=== PATIENT | female | born 1995 | race Caucasian/White ===

== ENCOUNTER 2017-09-21 00:09 | Emergency (ER) | payer SELFPAY ==
--- NOTE | 2017-09-21 00:37 | EDPHYS ---
Physician Documentation [facility] Name: Cristopher Garza Age: 22 yrs Sex: Female : 1995 Arrival Date: 09/21/2017 Time: 00:10 Bed 11 Private MD: ED Physician Malvin Bowen HPI: 09/21 02:36 This 22 yrs old Female presents to ER via Ambulatory with complaints of Back tw4 Pain - (Sunburn). 02:36 The patient presents with pain that is acute. The symptoms are located in the left tw4 scapular area and right scapular area. Onset: The symptoms/episode began/occurred today. The pain does not radiate. The problem was sustained sunburn. Modifying factors: The patient symptoms are alleviated by nothing, the patient symptoms are aggravated by. 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 - Social history:: Smoking status: Patient uses tobacco products, denies chronic smoking, but will smoke occasionally. - Ebola Screening: : Patient negative for fever greater than or equal to 101.5 degrees Fahrenheit, and additional compatible Ebola Virus Disease symptoms Patient denies exposure to infectious person Patient denies travel to an Ebola-affected area in the 21 days before illness onset. ROS: 02:36 Constitutional: Negative for fever, chills, and weight loss, Cardiovascular: Negative tw4 for chest pain, palpitations, and edema, Respiratory: Negative for shortness of breath, cough, wheezing, and pleuritic chest pain, Abdomen/GI: Negative for abdominal pain, nausea, vomiting, diarrhea, and constipation. 02:36 Skin: Positive for erythema. Exam: 02:36 Constitutional: This is a well developed, well nourished patient who is awake, alert, tw4 and in no acute distress. Head/Face: Normocephalic, atraumatic. Chest/axilla: Normal chest wall appearance and motion. Nontender with no deformity. No lesions are appreciated. Cardiovascular: Regular rate and rhythm with a normal S1 and S2. No gallops, murmurs, or rubs. Normal PMI, no JVD. No pulse deficits. Respiratory: Lungs have equal breath sounds bilaterally, clear to auscultation and percussion. No rales, rhonchi or wheezes noted. No increased work of breathing, no retractions or nasal flaring. Abdomen/GI: Soft, non-tender, with normal bowel sounds. No distension or tympany. No guarding or rebound. No evidence of tenderness throughout. 02:36 Skin: Appearance: Color: erythematous, [place], flushing. Vital Signs: 00:22 BP 125 / 87; Pulse 66; Resp 24; Temp 98.0(O); Pulse Ox 98% on R/A; Weight 92.99 kg (R); fc Height 5 ft. 8 in. (172.72 cm) (R); Pain 10/10; 00:22 Body Mass Index 31.17 (92.99 kg, 172.72 cm) MDM: 00:20 Patient medically screened. [facility] 02:36 Data reviewed: vital signs, nurses notes. Counseling: I had a detailed discussion with [facility] the patient and/or guardian regarding: the historical points, exam findings, and any diagnostic results supporting the discharge/admit diagnosis. Medication response: Toradol markedly relieved the patient's pain. Response to treatment: the patient's symptoms have markedly improved after treatment, and as a result, I will discharge patient. 09/21 00:44 Order name: Urine Dipstick--Ancillary (enter results) [facility] 06 00:44 Order name: Urine --Ancillary (enter results) [facility] 09/21 00:34 Order name: Urine Test (obtain specimen); Complete Time: 00:44 bb Administered Medications: 00:49 Drug: TORadol 60 mg Route: IM; Site: left gluteus; bb 01:04 Follow up: Response: No adverse reaction bb Disposition: 09/21/17 00:37 Discharged to Home. Impression: Sunburn of first degree. - Condition is Stable. - Discharge Instructions: Sunburn. - Prescriptions for Ibuprofen 800 mg Oral Tablet - take 1 tablet by ORAL route every 8 hours As needed take with food; 30 tablet. - Work release form, Medication Reconciliation Form, Thank You Letter, Antibiotic Education, Prescription Opioid Use form. - Follow up: Private Physician; When: As needed; Reason: Recheck today's complaints, Continuance of care, Re-evaluation by your physician. - Problem is new. - Symptoms have improved. Signatures: Dispatcher [employer] Eun Morrison, RN RN Yvonne Meyers RN RN bb Malvin Bowen MD MD tw4 Corrections: (The following items were deleted from the chart) 01:06 00:37 09/21/2017 00:37 Discharged to Home. Impression: Sunburn of first degree. bb Condition is Stable. Forms are Medication Reconciliation Form, Thank You Letter, Antibiotic Education, Prescription Opioid Use. Follow up: Private Physician; When: As needed; Reason: Recheck today's complaints, Continuance of care, Re-evaluation by your physician. Problem is new. Symptoms have improved. tw4
--- NOTE | 2017-09-21 00:37 | ER ---
Nurse's Notes [facility] Name: Cristopher Garza Age: 22 yrs Sex: Female : 1995 Arrival Date: 09/21/2017 Time: 00:10 Bed 11 Private MD: Diagnosis: Sunburn of first degree Presentation: 09/21 00:21 Presenting complaint: Patient states: that she got sunburned on Wednesday. Is having fc severe pain to upper back. Transition of care: patient was not received from another setting of care. Onset of symptoms was September 18, 2017. Risk Assessment: Do you want to hurt yourself or someone else? Patient reports no desire to harm self or others. Initial Sepsis Screen: Does the patient meet any 2 criteria? HR > 90 bpm. Yes Does the patient have a suspected source of infection? No. Patient's initial sepsis screen is negative. Care prior to arrival: Medication(s) given: Aloe vera and baking soda baths. 00:21 Method Of Arrival: Ambulatory 00:21 Acuity: OZZIE 5 Triage Assessment: 00:23 General: Appears uncomfortable, obese, Behavior is calm, cooperative, appropriate for age. Pain: Complains of pain in back Pain currently is 10 out of 10 on a pain scale. Quality of pain is described as burning, Pain began 2-3 days ago. Is continuous. EENT: No deficits noted. Neuro: Level of Consciousness is awake, alert, obeys commands, Oriented to person, place, time, situation. Cardiovascular: No deficits noted. Respiratory: No deficits noted. GI: No deficits noted. : No deficits noted. Derm: Skin is intact, Skin is dry, Skin is red, to back Skin temperature is hot. Musculoskeletal: Circulation, motion, and sensation intact. Capillary refill < 3 seconds, Range of motion: intact in all extremities, Reports pain in back from sunburn. [employer] OPERATIONS: 00:22 LMP 09/12/2017 Historical: - Allergies: 00:22 Codeine; fc 00:22 Sulfa; fc - Home Meds: 00:22 None [Active]; fc - PMHx: 00:22 Anxiety; fc - PSHx: 00:22 [place] teeth; fc - Immunization history:: Last tetanus immunization: up to date. - Social history:: Smoking status: Patient uses tobacco products, denies chronic smoking, but will smoke occasionally. - Ebola Screening: : Patient negative for fever greater than or equal to 101.5 degrees Fahrenheit, and additional compatible Ebola Virus Disease symptoms Patient denies exposure to infectious person Patient denies travel to an Ebola-affected area in the 21 days before illness onset. Screenin:24 Abuse screen: Denies threats or abuse. Nutritional screening: No deficits noted. fc Tuberculosis screening: No symptoms or risk factors identified. Fall Risk None identified. Assessment: 00:24 Reassessment: No changes from previously documented assessment. Patient and/or family fc updated on plan of care and expected duration. Pain level reassessed. Patient is alert, oriented x 3, equal unlabored respirations, skin warm/dry/pink. see triage assessment. 01:04 Reassessment: Patient is alert, oriented x 3, equal unlabored respirations, skin bb warm/dry/pink. pt verbalized understanding of and agrees to plan of care discharge instructions given pt ambulated with steady gait to exit accompanied by friend. Vital Signs: 00:22 BP 125 / 87; Pulse 66; Resp 24; Temp 98.0(O); Pulse Ox 98% on R/A; Weight 92.99 kg (R); fc Height 5 ft. 8 in. (172.72 cm) (R); Pain 10/10; 00:22 Body Mass Index 31.17 (92.99 kg, 172.72 cm) fc ED Course: 00:10 Patient arrived in ED. ds1 00:20 Malvin Bowen MD is Attending Physician. tw4 00:22 Triage completed. fc 00:22 Arm band placed on Patient placed in an exam room. fc 00:24 Patient has correct armband on for positive identification. Call light in reach. fc 00:24 No provider procedures requiring assistance completed. Patient did not have IV access fc during this emergency room visit. 00:34 Yvonne Meyers, MEGHNA is Primary Nurse. bb Administered Medications: 00:49 Drug: TORadol 60 mg Route: IM; Site: left gluteus; bb 01:04 Follow up: Response: No adverse reaction bb Outcome: 00:37 Discharge ordered by . tw4 01:05 Discharged to home ambulatory, with friend. bb 01:05 Condition: stable 01:05 Discharge instructions given to patient, Instructed on discharge instructions, follow up and referral plans. medication usage, Demonstrated understanding of instructions, follow-up care, medications, Prescriptions given X 1. 01:06 Patient left the ED. bb Signatures: Eun Shaw RN RN Delma Balderas ds1 Yvonne Meyers RN RN Malvin King MD MD tw4
[2017-09-21] MEDS ORDERED: KETOROLAC 30 MG/ML INJ ONE (00:45)
[2017-09-21 01:37] LABS: Urine Blood 1+ (NEG); Urine Glucose NEGATIVE (NEG); Urine Protein NEGATIVE (NEG)
[2017-09-21 01:38] VITALS: BP 125/87; TEMP 98; O2SAT 98
== END 2017-09-21 01:06 | disposition home or self-care (01) ==
LOC: ER 00:09
DX: L55.0 Sunburn of first degree (principal); F17.200 Nicotine dependence, unspecified, uncomplicated; Z88.6 Allergy status to analgesic agent; Z88.2 Allergy status to sulfonamides
CPT/HCPCS: 81003; 81025; 96372; 99283

== ENCOUNTER 2017-12-27 15:43 | Emergency (ER) | payer SELFPAY ==
[2017-12-27 16:29] LABS: Absolute Lymphocytes (CBC) 2.4 K/uL (0.7-4.9); Absolute Monocytes 0.8 K/uL (0.1-1.3); Absolute Neutrophil 6.2 K/uL (1.8-8.0); Basophils % 0.5 % (0-1.3); Eosinophils % 2.1 % (0-4.4); Hematocrit 40.3 % (36.0-45.0); Lymphocytes % 24.6 % (15.3-44.8); MCH 31.5 pg (27.0-35.0); MCV 89.5 fL (80-100); MPV 8.2 fL (7.6-11.3)
[2017-12-27] MEDS ORDERED: ONDANSETRON 4 MG/2 ML VIAL ONE (16:29)
[2017-12-27] MEDS ORDERED: MORPHINE 4 MG/ML SYR ONE (16:29)
[2017-12-27 16:49] LABS: BUN Blood Urea Nitrogen 9 mg/dL (7-18); Bicarbonate 28 mmol/L (21-32); Glucose Level 93 mg/dL (74-106); HCG, Quantitative 13 mIU/mL (1-3); Potassium 3.7 mmol/L (3.5-5.1); Sodium Level 140 mmol/L (136-145)
[2017-12-27 17:16] LABS: Urine Blood 2+ (NEG); Urine Glucose NEGATIVE (NEG); Urine Protein NEGATIVE (NEG); Urine pH 7.5 (5.0-7.0)
--- NOTE | 2017-12-27 17:21 | RAD REPORT ---
EXAM DESCRIPTION: US - Transvaginal OB - 12/27/2017 5:15 pm CLINICAL HISTORY: Vaginal bleeding COMPARISON: None. FINDINGS: Endometrial stripe is 6 mm. No intrauterine gestational sac or sac remnant. No hematoma, m ass or other focal endometrial abnormality. There are no myometrial masses. Uterus is 6.9 x 3.9 x 4.6 cm. Both ovaries are identifiable and show no dominant solid or cystic mass. Doppler evaluation shows nor mal blood flow within the ovarian stroma. No adnexal mass. Small quantity of free fluid in the cul-de -sac is within physiologic limits. IMPRESSION: Endovaginal pelvic ultrasound shows no significant or suspicious finding.
[2017-12-27] MEDS ORDERED: ACETAMINOPHEN 325 MG TABLET ONE (18:19)
--- NOTE | 2017-12-27 18:22 | ER ---
Nurse's Notes [facility] Name: Cristopher Garza Age: 22 yrs Sex: Female : 1995 Arrival Date: 12/27/2017 Time: 15:47 Bed 30 Private MD: Diagnosis: Suspected Presentation: 12/27 15:48 Presenting complaint: Patient states: vaginal bleeding that began today at 1200. Pt aa5 reports positive test 2-3 days ago. Pt also reports abd cramping. Transition of care: patient was not received from another setting of care. Onset of symptoms was December 2017. Risk Assessment: Do you want to hurt yourself or someone else? Patient reports no desire to harm self or others. Initial Sepsis Screen: Does the patient meet any 2 criteria? No. Patient's initial sepsis screen is negative. Does the patient have a suspected source of infection? No. Patient's initial sepsis screen is negative. Care prior to arrival: None. 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 - Ebola Screening: : No symptoms or risks identified at this time. - Social history:: Smoking status: Patient/guardian denies using tobacco. - Family history:: not pertinent. - Hospitalizations: : No recent hospitalization is reported. Screenin:54 Abuse screen: Denies threats or abuse. Denies injuries from another. Nutritional kr2 screening: No deficits noted. Tuberculosis screening: No symptoms or risk factors identified. Fall Risk IV access (20 points). Assessment: 16:00 Obstetrical Assessment: General assessment: awake and alert, anxious, skin warm and kr2 dry, respirations even and unlabored. General: Appears in no apparent distress. uncomfortable, well groomed, well developed, well nourished, Behavior is cooperative, appropriate for age, anxious. Pain: Complains of pain in pelvis Pain does not radiate. Pain currently is 8 out of 10 on a pain scale. Quality of pain is described as crampy, Pain began a few days ago Is Alleviated by nothing. Neuro: Level of Consciousness is awake, alert, obeys commands, Oriented to person, place, time, situation, Appropriate for age. Cardiovascular: Capillary refill < 3 seconds in bilateral fingers Patient's skin is warm and dry. Respiratory: Airway is patent Respiratory effort is even, unlabored, Respiratory pattern is regular, symmetrical. GI: Abdomen is flat, non-distended, Reports nausea. : Urine is clear, Reports cramping, pelvis vaginal bleeding that is bright red, since noon today "I only see blood when I wipe, I haven't seen any clots". Derm: Skin is intact, is healthy with good turgor, Skin is pink, warm \\T\\ dry. Musculoskeletal: Circulation, motion, and sensation intact. 17:16 Reassessment: Patient appears in no apparent distress at this time. Patient and/or kr2 family updated on plan of care and expected duration. Pain level reassessed. Patient is alert, oriented x 3, equal unlabored respirations, skin warm/dry/pink. Patient returned from ultrasound at this time. 18:33 Reassessment: Patient appears in no apparent distress at this time. Patient and/or kr2 family updated on plan of care and expected duration. Pain level reassessed. Patient is alert, oriented x 3, equal unlabored respirations, skin warm/dry/pink. Patient states symptoms have improved. Vital Signs: 15:50 BP 117 / 72; Pulse 78; Resp 16 S; Temp 97.3(TE); Pulse Ox 100% on R/A; Weight 92.99 kg aa5 (R); Height 5 ft. 5 in. (165.10 cm) (R); Pain 7/10; 16:40 BP 115 / 71; Pulse 61; Resp 16; Pulse Ox 97% on R/A; kr2 17:22 BP 114 / 59; Pulse 69; Resp 16; Pulse Ox 99% on R/A; kr2 18:33 BP 120 / 76; Pulse 70; Resp 17; Pulse Ox 99% on R/A; kr2 15:50 Body Mass Index 34.11 (92.99 kg, 165.10 cm) aa5 Vitals: 18:35 Heart Tones Done by ultrasound department. kr2 ED Course: 15:47 Patient arrived in ED. mr 15:48 Arm band placed on. aa5 15:49 Triage completed. aa5 15:54 Juwan Rhodes MD is Attending Physician. rn 16:00 Patient has correct armband on for positive identification. Bed in low position. Call kr2 light in reach. Side rails up X 1. Pulse ox on. NIBP on. Door closed. Warm blanket given. Head of bed elevated. 16:11 Rebekah Franco, RN is Primary Nurse. kr2 16:15 Inserted saline lock: 20 gauge in right antecubital area, using aseptic technique. kr2 Blood collected. 16:20 Radiology exam delayed due to test not completed at this time. aa4 16:40 Urine collected: clean catch specimen, clear. kr2 17:00 Patient taken to ultrasound. via wheelchair. cy 17:15 US Transvaginal Ob In Process Unspecified. EDMS 18:34 No provider procedures requiring assistance completed. IV discontinued, intact, kr2 bleeding controlled, No redness/swelling at site. Pressure dressing applied. Administered Medications: 16:47 Drug: Zofran 4 mg Route: IVP; Site: right antecubital; kr2 17:22 Follow up: Response: No adverse reaction; Nausea is decreased kr2 16:48 Drug: morphine 4 mg Route: IVP; Site: right antecubital; kr2 17:23 Follow up: Response: No adverse reaction; Pain is decreased kr2 18:18 Drug: Tylenol 650 mg Route: PO; aj 18:39 Follow up: Response: No adverse reaction; Pain is decreased kr2 Point of Care Testing: Urine : 16:40 hCG Reading: Positive; Control Reading: Positive; kr2 Outcome: 18:22 Discharge ordered by . rn 18:34 Discharged to home ambulatory, with family. kr2 18:34 Condition: stable 18:34 Discharge instructions given to patient, Instructed on discharge instructions, follow up and referral plans. Demonstrated understanding of instructions, follow-up care. 18:40 Patient left the ED. kr2 Signatures: Dispatcher [employer] EDMS Alda Curiel RN RN aj Rivera, Maria mr Retana Alda aa4 Juwan Rhodes MD MD rn Calderon, Audri, RN RN aa5 Rebekah Franco RN RN kr2 Philip Boswell Corrections: (The following items were deleted from the chart) 15:57 15:50 BP 117 / 72; Pulse 78bpm; Resp 16bpm; Spontaneous; Pulse Ox 100% RA; Temp 97.3F aa5 Temporal; 92.99 kg Reported; Height 5 ft. 0 in. Reported; BMI: 40.0; Pain 7/10; aa5
--- NOTE | 2017-12-27 18:23 | EDPHYS ---
Physician Documentation [facility] Name: Cristopher Garza Age: 22 yrs Sex: Female : 1995 Arrival Date: 12/27/2017 Time: 15:47 Bed 30 Private MD: ED Physician Juwan Rhodes HPI: 12/27 17:42 This 22 yrs old Female presents to ER via Ambulatory with complaints of rn Vaginal Bleeding, + Preg <12wks, Abdominal Pain. 17:42 The patient presents to the emergency department with abdominal pain, vaginal bleeding. rn The estimated gestational age is 4 weeks. The patient has not experienced similar symptoms in the past. Reports first , had positive test 2-3 days ago, has been having mild lower abd cramping for 1-2 weeks, but earlier today had development of sharp stabbing pain to lower abdomen, all across lower abdomen, non-radiating, assoc with vaginal bleeding, a little more than her regular period, no fever/trauma/sex. . 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 - Ebola Screening: : No symptoms or risks identified at this time. - Social history:: Smoking status: Patient/guardian denies using tobacco. - Family history:: not pertinent. - Hospitalizations: : No recent hospitalization is reported. ROS: 17:42 Constitutional: Negative for fever, chills, and weight loss, Eyes: Negative for injury, rn pain, redness, and discharge, Neck: Negative for injury, pain, and swelling, Cardiovascular: Negative for chest pain, palpitations, and edema, Respiratory: Negative for shortness of breath, cough, wheezing, and pleuritic chest pain, Abdomen/GI: + lower abd pain Back: Negative for injury and pain, : + vaginal bleeding, no urinary symptoms, no dysuria MS/Extremity: Negative for injury and deformity, Skin: Negative for injury, rash, and discoloration, Neuro: Negative for headache, weakness, numbness, tingling, and seizure. Exam: 17:42 Constitutional: This is a well developed, well nourished patient who is awake, alert, rn appears uncomfortable Head/Face: Normocephalic, atraumatic. Eyes: Pupils equal round and reactive to light, extra-ocular motions intact. Lids and lashes normal. Conjunctiva and sclera are non-icteric and not injected. Cornea within normal limits. Periorbital areas with no swelling, redness, or edema. Cardiovascular: Regular rate and rhythm with a normal S1 and S2. No gallops, murmurs, or rubs. Normal PMI, no JVD. No pulse deficits. Respiratory: Lungs have equal breath sounds bilaterally, clear to auscultation and percussion. No rales, rhonchi or wheezes noted. No increased work of breathing, no retractions or nasal flaring. Abdomen/GI: soft, mild tenderness RLQ/suprapubic/LLQ, no rebound or peritoneal signs Skin: Warm, dry with normal turgor. Normal color with no rashes, no lesions, and no evidence of cellulitis. MS/ Extremity: Pulses equal, no cyanosis. Neurovascular intact. Full, normal range of motion. Equal circumference. Neuro: Awake and alert, GCS 15, oriented to person, place, time, and situation. Cranial nerves II-XII grossly intact. Motor strength 5/5 in all extremities. Sensory grossly intact. Vital Signs: 15:50 BP 117 / 72; Pulse 78; Resp 16 S; Temp 97.3(TE); Pulse Ox 100% on R/A; Weight 92.99 kg aa5 (R); Height 5 ft. 5 in. (165.10 cm) (R); Pain 7/10; 16:40 BP 115 / 71; Pulse 61; Resp 16; Pulse Ox 97% on R/A; kr2 17:22 BP 114 / 59; Pulse 69; Resp 16; Pulse Ox 99% on R/A; kr2 18:33 BP 120 / 76; Pulse 70; Resp 17; Pulse Ox 99% on R/A; kr2 15:50 Body Mass Index 34.11 (92.99 kg, 165.10 cm) aa5 MDM: 15:54 Patient medically screened. rn 18:18 Differential diagnosis: ectopic . Data reviewed: vital signs, nurses notes, government affairs director test result(s), radiologic studies, ultrasound, and as a result, I will discharge patient. Counseling: I had a detailed discussion with the patient and/or guardian regarding: the historical points, exam findings, and any diagnostic results supporting the discharge/admit diagnosis, lab results, radiology results, the need for outpatient follow up, to return to the emergency department if symptoms worsen or persist or if there are any questions or concerns that arise at home. Response to treatment: the patient's symptoms have mildly improved after treatment, and as a result, I will discharge patient. Special discussion: I discussed with the patient/guardian in detail that at this point there is no indication for admission to the hospital. It is understood, however, that if the symptoms persist or worsen the patient needs to return immediately for re-evaluation. Based on the history and exam findings, there is no indication for further emergent testing or inpatient evaluation. I discussed with the patient/guardian the need to see the OB Gyne specialist for further evaluation of the symptoms. ED course: Pt improved, u/s does not show any evidence of ectopic, nothing in uterus, normal h/h, beta hcg 13, most likely in middle of or completing miscarriage.. 18:24 ED course: O+ per lab. . rn 12/27 16:00 Order name: Quantitative Hcg; Complete Time: 17:06 rn 12/27 16:00 Order name: Abo/rh Typing; Complete Time: 18:25 rn 12/27 16:00 Order name: Basic Metabolic Panel; Complete Time: 17:06 rn 12/27 16:00 Order name: CBC with Diff; Complete Time: 16:39 rn 12/27 16:53 Order name: Urine Dipstick--Ancillary (enter results); Complete Time: 17:33 bd 12/27 16:53 Order name: Urine --Ancillary (enter results); Complete Time: 17:33 bd 12/27 16:00 Order name: Urine Test (obtain specimen); Complete Time: 16:48 rn 12/27 16:00 Order name: IV Saline Lock; Complete Time: 16:48 rn 12/27 16:00 Order name: Labs collected and sent; Complete Time: 16:49 rn 12/27 16:00 Order name: NPO; Complete Time: 16:49 rn 12/27 16:01 Order name: US Transvaginal Ob; Complete Time: 18:06 rn 12/27 16:00 Order name: Urine Dipstick-Ancillary (obtain specimen); Complete Time: 16:49 rn Administered Medications: 16:47 Drug: Zofran 4 mg Route: IVP; Site: right antecubital; kr2 17:22 Follow up: Response: No adverse reaction; Nausea is decreased kr2 16:48 Drug: morphine 4 mg Route: IVP; Site: right antecubital; kr2 17:23 Follow up: Response: No adverse reaction; Pain is decreased kr2 18:18 Drug: Tylenol 650 mg Route: PO; aj 18:39 Follow up: Response: No adverse reaction; Pain is decreased kr2 Point of Care Testing: Urine : 16:40 hCG Reading: Positive; Control Reading: Positive; kr2 Disposition: 12/27/17 18:22 Discharged to Home. Impression: Suspected . - Condition is Stable. - Discharge Instructions: Abdominal Pain During , Miscarriage, First Trimester of . - Medication Reconciliation Form, Thank You Letter, Antibiotic Education, Prescription Opioid Use, Work release form form. - Follow up: Emergency Department; When: 48 Hours; Reason: Recheck today's complaints, Repeat Beta-HCG (48 Hours), Re-evaluation by your physician. - Problem is new. - Symptoms have improved. Signatures: Dispatcher [employer] EDMS Alda Curiel RN Juwan Martinez MD MD rn Calderon, Audri RN MEGHNA aa5 Rebekah Franco RN RN kr2 Corrections: (The following items were deleted from the chart) 18:26 17:42 Constitutional: Negative for fever, chills, and weight loss, Eyes: Negative for rn injury, pain, redness, and discharge, Neck: Negative for injury, pain, and swelling, Cardiovascular: Negative for chest pain, palpitations, and edema, Respiratory: Negative for shortness of breath, cough, wheezing, and pleuritic chest pain, Abdomen/GI: + lower abd pain Back: Negative for injury and pain, : + vaginal bleeding MS/Extremity: Negative for injury and deformity, Skin: Negative for injury, rash, and discoloration, Neuro: Negative for headache, weakness, numbness, tingling, and seizure, rn 18:40 18:22 12/27/2017 18:22 Discharged to Home. Impression: Suspected . Condition is kr2 Stable. Forms are Medication Reconciliation Form, Thank You Letter, Antibiotic Education, Prescription Opioid Use. Follow up: Emergency Department; When: 48 Hours; Reason: Recheck today's complaints, Repeat Beta-HCG (48 Hours), Re-evaluation by your physician. Problem is new. Symptoms have improved. rn
[2017-12-27 18:45] VITALS: TEMP 97.3
[2017-12-27 18:49] VITALS: O2SAT 99
[2017-12-27 18:50] VITALS: BP 120/76
== END 2017-12-27 18:40 | disposition home or self-care (01) ==
LOC: ER 15:43
DX: O46.91 Antepartum hemorrhage, unspecified, first trimester (principal); Z3A.01 Less than 8 weeks gestation of pregnancy; Z88.2 Allergy status to sulfonamides; Z88.5 Allergy status to narcotic agent
CPT/HCPCS: 36415; 76817; 80048; 81003; 81025; 84702; 85025; 86900; 86901; 96374; 96375; 99285; J2405

== ENCOUNTER 2017-12-29 16:00 | Emergency (ER) | payer SELFPAY ==
--- NOTE | 2017-12-29 17:32 | EDPHYS ---
Physician Documentation [facility] Name: Cristopher Garza Age: 22 yrs Sex: Female : 1995 Arrival Date: 12/29/2017 Time: 16:06 Bed 19 Private MD: ED Physician Megan Abdul HPI: 12/29 17:27 This 22 yrs old Female presents to ER via Ambulatory with complaints of kb Repeat HCG.. 17:27 The patient presents to the emergency department with abdominal pain, of the suprapubic kb area, described as crampy, vaginal bleeding, that is light. course: care: none, Leakage of Fluid: none appreciated, Ultrasound: the patient had an ultrasound, on December 27, 2017, which showed No abnormality on US. No signs of on US, Risk/complications: no obvious risks or complications are appreciated. Previous pregnancies: the patient has never been . Associated signs and symptoms: Pertinent positives: abdominal pain, vaginal bleeding, Pertinent negatives: chest pain, diarrhea, dysuria, fever, frequency, nausea, ruptured membranes, seizure, shortness of breath, vaginal discharge, vomiting. The patient has not experienced similar symptoms in the past. The patient has been recently seen at the [facility] Emergency Department, this week, for similar complaints. 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 ROS: 17:27 Constitutional: Negative for fever, chills, and weight loss, Cardiovascular: Negative kb for chest pain, palpitations, and edema, Respiratory: Negative for shortness of breath, cough, wheezing, and pleuritic chest pain, Back: Negative for injury and pain, MS/Extremity: Negative for injury and deformity, Skin: Negative for injury, rash, and discoloration, Neuro: Negative for headache, weakness, numbness, tingling, and seizure. 17:27 Abdomen/GI: Positive for abdominal pain, Negative for nausea, vomiting, and diarrhea, constipation, abdominal cramps, abdominal distension, anorexia. 17:27 : Positive for vaginal bleeding. Exam: 17:26 Constitutional: This is a well developed, well nourished patient who is awake, alert, kb and in no acute distress. Head/Face: Normocephalic, atraumatic. Chest/axilla: Normal chest wall appearance and motion. Nontender with no deformity. No lesions are appreciated. Cardiovascular: Regular rate and rhythm with a normal S1 and S2. No gallops, murmurs, or rubs. Normal PMI, no JVD. No pulse deficits. Respiratory: Lungs have equal breath sounds bilaterally, clear to auscultation and percussion. No rales, rhonchi or wheezes noted. No increased work of breathing, no retractions or nasal flaring. Back: No spinal tenderness. No costovertebral tenderness. Full range of motion. Skin: Warm, dry with normal turgor. Normal color with no rashes, no lesions, and no evidence of cellulitis. MS/ Extremity: Pulses equal, no cyanosis. Neurovascular intact. Full, normal range of motion. Neuro: Awake and alert, GCS 15, oriented to person, place, time, and situation. Cranial nerves II-XII grossly intact. Motor strength 5/5 in all extremities. Sensory grossly intact. Cerebellar exam normal. Normal gait. 17:26 Abdomen/GI: Inspection: abdomen appears normal, Bowel sounds: normal, in all quadrants, Palpation: soft, in all quadrants, mild abdominal tenderness, in the suprapubic area. Vital Signs: 16:16 BP 117 / 52; Pulse 76; Resp 18; Pulse Ox 99% ; Weight 92.99 kg; Height 5 ft. 8 in. sv (172.72 cm); 17:58 BP 112 / 62; Pulse 66; Resp 18; Pulse Ox 99% ; aj1 16:16 Body Mass Index 31.17 (92.99 kg, 172.72 cm) sv MDM: 16:23 Patient medically screened. kb 17:26 Data reviewed: vital signs, nurses notes. Data interpreted: Pulse oximetry: on room air kb is 99 %. Interpretation: normal. Counseling: I had a detailed discussion with the patient and/or guardian regarding: the historical points, exam findings, and any diagnostic results supporting the discharge/admit diagnosis, lab results, the need for outpatient follow up, an OB/Gyne specialist, to return to the emergency department if symptoms worsen or persist or if there are any questions or concerns that arise at home. 12/29 16:23 Order name: HCG-Quantitative; Complete Time: 17:21 kb Administered Medications: No medications were administered Disposition: 18:43 Co-signature as Attending Physician, Megan Abdul MD. ma2 Disposition: 12/29/17 17:31 Discharged to Home. Impression: Incomplete spontaneous without complication. - Condition is Stable. - Discharge Instructions: Miscarriage, [id number]. - Medication Reconciliation Form, Thank You Letter, Antibiotic Education, Prescription Opioid Use form. - Follow up: Emergency Department; When: As needed; Reason: Worsening of condition. Follow up: Private Physician; When: 2 - 3 days; Reason: Recheck today's complaints, Continuance of care, Re-evaluation by your physician. Signatures: Dispatcher [employer] EDShannan William, BALA MURRY-Teresa Ardon RN RN aj1 Yadira Prado RN RN Megan Abdul MD MD ma2 Corrections: (The following items were deleted from the chart) 18:01 17:31 12/29/2017 17:31 Discharged to Home. Impression: Incomplete spontaneous aj1 without complication. Condition is Stable. Forms are Medication Reconciliation Form, Thank You Letter, Antibiotic Education, Prescription Opioid Use. Follow up: Emergency Department; When: As needed; Reason: Worsening of condition. Follow up: Private Physician; When: 2 - 3 days; Reason: Recheck today's complaints, Continuance of care, Re-evaluation by your physician. kb
--- NOTE | 2017-12-29 17:32 | ER ---
Nurse's Notes [facility] Name: Cristopher Garza Age: 22 yrs Sex: Female : 1995 Arrival Date: 12/29/2017 Time: 16:06 Bed 19 Private MD: Diagnosis: Incomplete spontaneous without complication Presentation: 12/29 16:13 Presenting complaint: Patient states: here to get a repeat HCG level. Was seen here sv Wednesday. Transition of care: patient was not received from another setting of care. Onset of symptoms was December 27, 2017. Care prior to arrival: None. 16:13 Method Of Arrival: Ambulatory sv 16:13 Acuity: OZZIE 4 sv 17:59 Initial Sepsis Screen: Does the patient meet any 2 criteria? No. Patient's initial aj1 sepsis screen is negative. Does the patient have a suspected source of infection? No. Patient's initial sepsis screen is negative. 18:00 Risk Assessment: Do you want to hurt yourself or someone else? Patient reports no aj1 desire to harm self or others. 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 Screenin:58 Abuse screen: Denies threats or abuse. Denies injuries from another. Nutritional aj1 screening: No deficits noted. Tuberculosis screening: No symptoms or risk factors identified. 17:58 Fall Risk None identified. aj1 Assessment: 16:58 General: Appears in no apparent distress. comfortable, Behavior is calm, cooperative, aj1 appropriate for age. Pain: Complains of pain in right lower quadrant and left lower quadrant Pain does not radiate. Pain currently is 3 out of 10 on a pain scale. Quality of pain is described as crampy. Neuro: Level of Consciousness is awake, alert, obeys commands. Cardiovascular: Patient's skin is warm and dry. Respiratory: Airway is patent Respiratory effort is even, unlabored, Respiratory pattern is regular, symmetrical. GI: No signs and/or symptoms were reported involving the gastrointestinal system. : Reports vaginal bleeding that is bright red, heavy flow. EENT: No signs and/or symptoms were reported regarding the EENT system. Derm: No signs and/or symptoms reported regarding the dermatologic system. Skin is pink, warm \T\ dry. normal. Musculoskeletal: No signs and/or symptoms reported regarding the musculoskeletal system. Circulation, motion, and sensation intact. 17:58 Reassessment: Patient appears in no apparent distress at this time. No changes from aj1 previously documented assessment. Patient and/or family updated on plan of care and expected duration. Pain level reassessed. Patient is alert, oriented x 3, equal unlabored respirations, skin warm/dry/pink. Vital Signs: 16:16 BP 117 / 52; Pulse 76; Resp 18; Pulse Ox 99% ; Weight 92.99 kg; Height 5 ft. 8 in. sv (172.72 cm); 17:58 BP 112 / 62; Pulse 66; Resp 18; Pulse Ox 99% ; aj1 16:16 Body Mass Index 31.17 (92.99 kg, 172.72 cm) sv ED Course: 16:06 Patient arrived in ED. sb2 16:14 Triage completed. sv 16:16 Arm band placed on right wrist. sv 16:17 Teresa Perkins, RN is Primary Nurse. aj1 16:23 Shannan Redmond FNP-C is PHCP. kb 16:23 Megan Abdul MD is Attending Physician. kb 16:58 Patient has correct armband on for positive identification. Bed in low position. Call aj1 light in reach. Side rails up X 1. 16:58 No provider procedures requiring assistance completed. aj1 17:58 Patient did not have IV access during this emergency room visit. aj1 Administered Medications: No medications were administered Outcome: 17:31 Discharge ordered by . kb 17:58 Discharged to home ambulatory, with family. aj1 17:58 Condition: good 17:58 Discharge instructions given to patient, Instructed on discharge instructions, follow up and referral plans. Demonstrated understanding of instructions, follow-up care. 18:01 Patient left the ED. aj1 Signatures: Shannan Redmond FNP-C FNP-Teresa Ardon RN MEGHNA aj1 Yadira Prado RN RN Chuyita Dove sb2
[2017-12-29 18:16] VITALS: O2SAT 99
[2017-12-29 18:26] VITALS: BP 112/62
== END 2017-12-29 18:01 | disposition home or self-care (01) ==
LOC: ER 16:00
DX: O03.4 Incomplete spontaneous abortion without complication (principal); Z88.2 Allergy status to sulfonamides; Z88.5 Allergy status to narcotic agent
CPT/HCPCS: 36415; 84702; 99281

== ENCOUNTER 2021-10-15 11:37 | Emergency (ER) | payer SELFPAY ==
[2021-10-15 13:14] LABS: Urine Blood Trace-intact (Negative); Urine Glucose Negative (Negative); Urine Protein Negative (Negative); Urine Specific Gravity 1.025 (1.005-1.030)
[2021-10-15 13:22] LABS: Urine Specific Gravity/Preg 1.025 (1.005-1.030)
--- NOTE | 2021-10-15 13:25 | RAD REPORT ---
EXAM DESCRIPTION: US - Transvaginal Study Probe - 10/15/2021 1:16 pm CLINICAL HISTORY: Pelvic pain COMPARISON: none FINDINGS: The uterus measures 7 x 3 x 5 cm. A fibroid is not seen. The endometrial stripe measures 8 millimeters The ovaries are normal in size and echotexture. The right and left adnexa unremarkable No significant free fluid is seen. IMPRESSION: Unremarkable pelvic ultrasound
[2021-10-15] MEDS ORDERED: MORPHINE 4 MG/ML SYR ONE (14:13)
[2021-10-15] MEDS ORDERED: ONDANSETRON 4 MG/2 ML VIAL ONE (14:13)
[2021-10-15 14:32] LABS: Absolute Lymphocytes (CBC) 3.7 K/uL (0.7-4.9); Hematocrit 37.5 % (36.0-45.0); MPV 7.7 fL (7.6-11.3); RBC Red Blood Cell Count 4.45 M/uL (3.86-4.86)
[2021-10-15 14:50] LABS: Albumin 3.6 g/dL (3.4-5.0); Bilirubin Total 0.5 mg/dL (0.2-1.0); Potassium 3.8 mmol/L (3.5-5.1); Protein, Total 7.2 g/dL (6.4-8.2)
--- NOTE | 2021-10-15 15:35 | RAD REPORT ---
EXAM DESCRIPTION: CT - Abdomen Pelvis W Contrast - 10/15/2021 3:16 pm CLINICAL HISTORY: Abdominal pain COMPARISON: 2016 TECHNIQUE: Computed axial tomography of the abdomen pelvis was obtained. 100 cc Isovue-300 was admin istered intravenously. Oral contrast was not requested which limits evaluation of bowel and appendix All CT scans are performed using dose optimization technique as appropriate and may include automated exposure control or mA/KV adjustment according to patient size. FINDINGS: The liver, spleen, pancreas, adrenal and kidneys appear unremarkable. There is no evidence of diverticulitis. Normal appendix 2 centimeter left ovarian cyst without significant free fluid IMPRESSION: 2 centimeter left ovarian cyst without significant free fluid
[2021-10-15] MEDS ORDERED: KETOROLAC 30 MG/ML INJ ONE (16:49)
[2021-10-15] MEDS ORDERED: NA CHLORIDE 0.9% 1,000 ML ONE (17:30)
--- NOTE | 2021-10-15 18:46 | ER ---
Nurse's Notes [facility] Name: Cristopher Deleon Age: 26 yrs Sex: Female : 1995 Arrival Date: 10/15/2021 Time: 11:50 Bed 18 Private MD: Diagnosis: Pelvic and perineal pain;Other ovarian cysts Presentation: 10/15 11:53 Chief complaint: Patient states: she started having lower abdominal pain accompanied by ap3 what she describes of a "warming sensation" since approx 0830 this morning. Patient reports the pain is worse when she sits or has to step up onto a step. Patient denies NV. Coronavirus screen: At this time, the client does not indicate any symptoms associated with coronavirus-19. Ebola Screen: No symptoms or risks identified at this time. Initial Sepsis Screen: Does the patient meet any 2 criteria? No. Patient's initial sepsis screen is negative. Does the patient have a suspected source of infection? No. Patient's initial sepsis screen is negative. Risk Assessment: Do you want to hurt yourself or someone else? Patient reports no desire to harm self or others. Onset of symptoms was October 15, 2021 at 08:30. 11:53 Method Of Arrival: Ambulatory ap3 11:53 Acuity: OZZIE 3 ap3 Triage Assessment: 11:57 General: Appears uncomfortable, Behavior is restless. Pain: Complains of pain in ap3 suprapubic area Pain currently is 7 out of 10 on a pain scale. at worst was 10 out of 10 on a pain scale. Neuro: Level of Consciousness is awake, alert, obeys commands, Oriented to person, place, time, situation, Appropriate for age Speech is normal. Cardiovascular: Patient's skin is warm and dry. Respiratory: Airway is patent Respiratory effort is even, unlabored, Respiratory pattern is regular, symmetrical. GI: Reports lower abdominal pain. : No signs and/or symptoms were reported regarding the genitourinary system. 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 - Social history:: Smoking status: Patient denies any tobacco usage or history of. Screenin:58 Abuse screen: Denies threats or abuse. Nutritional screening: No deficits noted. ap3 Tuberculosis screening: No symptoms or risk factors identified. Fall Risk None identified. Assessment: 14:15 General: Appears in no apparent distress. Behavior is calm, cooperative. Pain: ww Complains of pain in suprapubic area. Neuro: Level of Consciousness is awake, alert, obeys commands, Oriented to person, place, time, situation, Moves all extremities. Gait is steady, Speech is normal. Cardiovascular: Capillary refill < 3 seconds Patient's skin is warm and dry. Chest pain is denied. Respiratory: Airway is patent Respiratory effort is even, unlabored, Respiratory pattern is regular, symmetrical. GI: Abdomen is round Abd is soft Abdomen is tender to palpation. Derm: No signs and/or symptoms reported regarding the dermatologic system. Skin is healthy with good turgor. 15:20 Reassessment: Patient appears in no apparent distress at this time. No changes from previously documented assessment. Patient and/or family updated on plan of care and expected duration. Pain level reassessed. Patient is alert, oriented x 3, equal unlabored respirations, skin warm/dry/pink. 16:25 Reassessment: Patient appears in no apparent distress at this time. No changes from ww previously documented assessment. Patient and/or family updated on plan of care and expected duration. Pain level reassessed. Patient is alert, oriented x 3, equal unlabored respirations, skin warm/dry/pink. 17:15 Reassessment: Patient appears in no apparent distress at this time. No changes from ww previously documented assessment. Patient and/or family updated on plan of care and expected duration. Pain level reassessed. patient sleeping. 18:30 Reassessment: Patient appears in no apparent distress at this time. No changes from ww previously documented assessment. Patient and/or family updated on plan of care and expected duration. Pain level reassessed. Patient is alert, oriented x 3, equal unlabored respirations, skin warm/dry/pink. Vital Signs: 11:53 BP 106 / 68; Pulse 78; Resp 16; Temp 98.8; Pulse Ox 100% ; Weight 97.52 kg; Height 5 ap3 ft. 8 in. (172.72 cm); Pain 7/10; 14:16 BP 99 / 57; Pulse 57; Resp 18; Pulse Ox 100% on R/A; ww 15:00 BP 93 / 50; Pulse 51; Resp 18; Pulse Ox 100% on R/A; ww 16:30 BP 90 / 50; Pulse 51; Resp 18; Pulse Ox 100% ; ww 17:30 BP 97 / 55; Pulse 51; Resp 18; Pulse Ox 100% on R/A; ww 18:30 BP 97 / 58; Pulse 53; Resp 18; Pulse Ox 100% on R/A; ww 11:53 Body Mass Index 32.69 (97.52 kg, 172.72 cm) ap3 ED Course: 11:50 Patient arrived in ED. ja2 11:56 Triage completed. ap3 11:58 Arm band placed on right wrist. ap3 12:01 Sacha Hill PA is PHCP. [facility] 12:01 Yg Rushing MD is Attending Physician. [facility] 13:01 Miley Mtz, MEGHNA is Primary Nurse. ww 13:18 Transvaginal Study Probe In Process Unspecified. EDMS 14:14 Patient has correct armband on for positive identification. Placed in gown. Bed in low ww position. Call light in reach. Side rails up X 1. Pulse ox on. NIBP on. Warm blanket given. 14:14 Inserted saline lock: 20 gauge in right antecubital area, using aseptic technique. ww Blood collected. 15:18 CT Abd/Pelvis - IV Contrast Only In Process Unspecified. EDMA 18:45 Zachary Kumar MD is Referral Physician. [facility] 18:45 Referral Physician role handed off by Zachary Kumar MD [facility] 18:45 Yodit Cleary MD is Referral Physician. [facility] 19:34 No provider procedures requiring assistance completed. IV discontinued, intact, lg3 bleeding controlled, No redness/swelling at site. Pressure dressing applied. Administered Medications: 14:05 Drug: morphine 4 mg Route: IVP; Infused Over: 4 mins; Site: right antecubital; ww 14:14 Drug: Zofran (Ondansetron) 4 mg Route: IVP; Site: right antecubital; ww 17:30 Drug: NS 0.9% 1000 ml Route: IV; Rate: 1 bolus; Site: right antecubital; ww Medication: 19:35 VIS not applicable for this client. lg3 Outcome: 18:46 Discharge ordered by . ruth 19:34 Discharged to home ambulatory. lg3 19:34 Condition: stable 19:34 Discharge instructions given to patient, Instructed on discharge instructions, follow up and referral plans. medication usage, Demonstrated understanding of instructions, follow-up care, medications, Prescriptions given X 1. 19:35 Patient left the ED. lg3 Signatures: Dispatcher [employer] EDMS Sacha Hill PA PA jmm Prokisch, Amanda, RN RN [email or web address] Jolie Durant RN RN lg3 Bceky Olson Whitney, RN RN ww
--- NOTE | 2021-10-15 18:46 | EDPHYS ---
Physician Documentation [facility] Name: Cristopher Deleon Age: 26 yrs Sex: Female : 1995 Arrival Date: 10/15/2021 Time: 11:50 Bed 18 Private MD: ED Physician Yg Rushing HPI: 10/15 12:13 This 26 yrs old Female presents to ER via Ambulatory with complaints of Abdominal jmm Cramping. 12:13 The patient presents with pelvic pain. Onset: The symptoms/episode began/occurred jmm gradually. Modifying factors: The symptoms are alleviated by nothing, the symptoms are aggravated by nothing. 12:13 This is a 26 year old female with a history of anxiety that presents to the ED with jmm complaints of left lower pelvic pain beginning this am. Denies vomiting, diarrhea, fever. Pain does radiate to the right lower pelvis. Denies dysuria, vaginal discharge. . 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 - Social history:: Smoking status: Patient denies any tobacco usage or history of. ROS: 12:13 Constitutional: Negative for fever, chills, and weight loss, Cardiovascular: Negative jmm for chest pain, palpitations, and edema, Respiratory: Negative for shortness of breath, cough, wheezing, and pleuritic chest pain. 12:13 Abdomen/GI: Positive for abdominal pain. 12:13 All other systems are negative. Exam: 12:13 Constitutional: This is a well developed, well nourished patient who is awake, alert, jmm and in no acute distress. Head/Face: atraumatic. Eyes: EOMI, no conjunctival erythema appreciated ENT: Moist Mucus Membranes Neck: Trachea midline, Supple Chest/axilla: Normal chest wall appearance and motion. Cardiovascular: Regular rate and rhythm. No edema appreciated Respiratory: Normal respirations, no respiratory distress appreciated 12:13 Back: Normal ROM Skin: General appearance color normal MS/ Extremity: Moves all extremities, no obvious deformities appreciated, no edema noted to the lower extremities Neuro: Awake and alert Psych: Behavior is normal, Mood is normal, Patient is cooperative and pleasant 12:13 Abdomen/GI: Inspection: abdomen appears normal, Bowel sounds: normal, Palpation: soft, moderate abdominal tenderness, in the suprapubic area, right lower quadrant and left lower quadrant. Vital Signs: 11:53 BP 106 / 68; Pulse 78; Resp 16; Temp 98.8; Pulse Ox 100% ; Weight 97.52 kg; Height 5 ap3 ft. 8 in. (172.72 cm); Pain 7/10; 14:16 BP 99 / 57; Pulse 57; Resp 18; Pulse Ox 100% on R/A; ww 15:00 BP 93 / 50; Pulse 51; Resp 18; Pulse Ox 100% on R/A; ww 16:30 BP 90 / 50; Pulse 51; Resp 18; Pulse Ox 100% ; ww 17:30 BP 97 / 55; Pulse 51; Resp 18; Pulse Ox 100% on R/A; ww 18:30 BP 97 / 58; Pulse 53; Resp 18; Pulse Ox 100% on R/A; ww 11:53 Body Mass Index 32.69 (97.52 kg, 172.72 cm) ap3 MDM: 12:13 Patient medically screened. sudha 18:38 Data reviewed: vital signs, nurses notes. Counseling: I had a detailed discussion with ruth the patient and/or guardian regarding: the historical points, exam findings, and any diagnostic results supporting the discharge/admit diagnosis, lab results, radiology results, the need for outpatient follow up, to return to the emergency department if symptoms worsen or persist or if there are any questions or concerns that arise at home. 10/15 12:48 Order name: CBC with Diff; Complete Time: 14:33 [facility] 10/15 12:48 Order name: CMP; Complete Time: 14:52 [facility] 10/15 12:48 Order name: Lipase; Complete Time: 14:52 [facility] 10/15 13:14 Order name: Urine --Ancillary (enter results); Complete Time: 13:24 em1 10/15 13:14 Order name: Urine Dipstick-Ancillary; Complete Time: 13:16 [facility] 10/15 12:48 Order name: IV Saline Lock; Complete Time: 14:02 [facility] 10/15 12:48 Order name: Labs collected and sent; Complete Time: 14:02 [facility] 10/15 13:00 Order name: Transvaginal Study Probe; Complete Time: 13:26 [facility] 10/15 13:25 Order name: CT Abd/Pelvis - IV Contrast Only; Complete Time: 15:40 [facility] 10/15 12:48 Order name: Urine Dipstick-Ancillary (obtain specimen); Complete Time: 13:08 [facility] 10/15 12:48 Order name: Urine Test (obtain specimen); Complete Time: 13:08 [facility] Administered Medications: 14:05 Drug: morphine 4 mg Route: IVP; Infused Over: 4 mins; Site: right antecubital; ww 14:14 Drug: Zofran (Ondansetron) 4 mg Route: IVP; Site: right antecubital; ww 17:30 Drug: NS 0.9% 1000 ml Route: IV; Rate: 1 bolus; Site: right antecubital; ww Disposition Summary: 10/15/21 18:46 Discharge Ordered Location: Home [facility] Condition: Stable [facility] Diagnosis - Pelvic and perineal pain jmm - Other ovarian cysts [facility] Followup: [facility] - With: Zachary Kumar MD - When: 2 - 3 days - Reason: Recheck today's complaints, Continuance of care, Re-evaluation by your physician Followup: [facility] - With: Yodit Cleary MD - When: 2 - 3 days - Reason: Recheck today's complaints, Continuance of care, Re-evaluation by your physician Discharge Instructions: - Discharge Summary Sheet [facility] - Ovarian Cyst jmm - Pelvic Pain, Female [facility] Forms: - Medication Reconciliation Form [facility] - Thank You Letter [facility] - Antibiotic Education jmm - Prescription Opioid Use [facility] Prescriptions: - Diclofenac Sodium 75 mg Oral Tablet Sustained Release - take 1 tablet by ORAL route 2 times per day; 30 tablet; Refills: 0, Product [facility] Selection Permitted Signatures: Dispatcher [employer] EDMS Yg uRshing MD MD cha Mickail, Joel, PA PA jmm Prokisch, Amanda, RN RN ap3 Miley Mtz RN RN ww Corrections: (The following items were deleted from the chart) 13:00 12:50 Pelvis Complete+US.RAD.[email or web address] ordered. EDMS EDMS
[2021-10-15 20:07] VITALS: TEMP 98.8; O2SAT 100
[2021-10-15 20:15] VITALS: BP 97/58
== END 2021-10-15 19:35 | disposition home or self-care (01) ==
LOC: ER 11:37
DX: N83.299 Other ovarian cyst, unspecified side (principal); Z88.2 Allergy status to sulfonamides; Z88.5 Allergy status to narcotic agent; Z91.048 Other nonmedicinal substance allergy status
CPT/HCPCS: 36415; 74177; 76830; 80053; 81003; 81025; 83690; 85025; J2405; J7030; Q9967

== ENCOUNTER 2022-07-02 08:04 | Emergency (ER) | payer SELFPAY ==
--- OUTSIDE RECORDS SUMMARY | 2022-07-02 08:08 | XMS REPORT | Continuity of Care Document ---
:[address] [facility] t Address [address] [place] [address] [address] [place] [address] Care Team Providers Name Role Phone GISELLE CONDON Primary Care Physician Unavailable Kari Harrison Attending Clinician KARI GUPTA Attending Clinician Unavailable Ean Marks Attending Clinician KARI GUPTA Admitting Clinician Unavailable Problems Condition Condition Condition Status Onset Resolution Last Treating Co mments Source Name Details Category Date Date Treatment Clinician Date Encounter Encounter Disease Active Uni vers for for 04-24 [place] Encounter Encounter Disease Active Uni vers for for 04-24 [place] of Nexplanon [place] Rubella Rubella Disease Active Univers immune immune 3-26 ity of 00:00: [place] 00 Medical Branch General General Disease Active Overview: Univ ers counseling counseling 3-25 RTC for i ty of and advice and advice 00:00: Nexplanon [place] for for ICD10 Medical contracept contracept Diagnosis Branch jessica jessica 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 [employer] Utility Allergies, Adverse Reactions, Alerts Allergy Allergy Status Severity Reaction(s) Onset Inactive Treating Comm ents Source Name Type Date Date Clinician Codeine Propensi Active Rash 2017-04 Univers ty to 2-26 ity of adverse 00:00: [place] reaction 00 Medical s Branch Sulfa Propensi Active Rash 2017-04 Univers (Sulfona ty to 2-26 ity of mide adverse 00:00: [place] Antibiot reaction 00 Medica l ics) s Branch Talc Propensi Active Swelling 2017-04 Univer s ty to 2- ity of adverse 00:00: [place] reaction 00 Medical s Branch CODEINE DRUG Active Rash 2017-04 Univers INGREDI 2- ity of 00:00: [place] 00 Medical Branch SULFA Drug Active Rash 2017-04 Univers (SULFONA Class 2-26 ity of MIDE 00:00: [place] ANTIBIOT 00 Medical ICS) Branch TALC DRUG Active Swelling 2017-04 Univers INGREDI - ity of 00:00: [place] 00 Medical Branch Social History Social Habit Start Date Stop Date Quantity Comments Source History of Cigarette Smoker Universi ty of tobacco use [facility] Sex Assigned At Universit y of [facility] Alcohol intake 2018-12-23 2018-12-23 University of 00:00:00 00:00:00 [facility] Tobacco Comment 2015-04-24 2015-04-24 smokes 1-2 x per Uni versity of 00:00:00 00:00:00 day [facility] Smoking Status Start Date Stop Date Source Current every day smoker 2018-12-23 00:00:00 Uni versity of [facility] Medications Ordered Filled Start Stop Current Ordering Indication Dosage Frequency Signature Comments Components Source Medication Medication Date Date Medication? Clinician (SIG) Name Name dexamethaso 2019- 2020- No 10mg 10 mg, IV Univers ne 06-11 Push, ity of (DECADRON 06:30: 05:31 ONCE, 1 [place] PHOS[place] 00 :00 dose, [place] Medi luz injection 06/11/19 at [facility] ch 10 mg 0030, STAT acetaminoph 2020- No 1000mg 1,000 mg, Univers en 06-11 Oral, ity of (TYLENOL) 06:30: 05:30 ONCE, 1 [place] tablet 00 :00 dose, Sun Medical 1,000 mg 06/11/19 at [facility] h 0030, Routine ketorolac 2019- 2020- No 30mg 30 mg, Unive rs (TORADOL) 06-11 Slow IV ity of injection 06:30: 05:31 Push, [place] 30 mg 00 :00 ONCE, 1 Medical dose, Sun Branch 06/11/19 at 0030, Routine
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 ondansetron 2018- No 4mg 4 mg, Univ ers (ZOFRAN-ODT 12-24 Oral, ity of ) 01:30: 00:34 ONCE, 1 [place] disintegrat 00 :00 dose, Fri Med ical ing tablet 12/23/18 at Bran ch 4 mg 2029, Routine levoFLOXaci Yes 750mg 750 mg, Un ag n 12-24 Oral, Q24H ity of (LEVAQUIN) 01:15: ABX, First [place] tablet 750 00 dose on Medica l mg 12/23/18 Branch at 2015, Until Discontinu ed, ANNA
Re ason for Anti-Infec tive: Empiric Therapy for Suspected Infection< br>Empiric Therapy Site: Urine<br&g t;Duration of therapy: 72 hours phenazopyri Yes 200mg 200 mg, Un ag dine 12-24 Oral, TID, ity of (PYRIDIUM) 01:00: First dose [place] tablet 200 00 on Fri Medical mg 12/23/18 at Branch 2000, Until Discontinu ed, Routine ibuprofen 2019- No 600mg 600 mg, Uni vers (IBU) 12-24 Oral, ity of tablet 600 00:30: 00:33 ONCE, 1 [place] mg 00 :00 dose, Fri Medical 12/23/18 at Branch 1930, ANNA phenazopyri 2019-0 Yes [id number] 200mg Take 1 Univers dine 200 mg 9-06 tablet by ity of tablet 00:00: mouth 3 [place] 00 (three) Medical times Branch daily. ondansetron 2019-0 Yes [id number] 4mg Take 1 Univers (ZOFRAN 9-06 tablet by ity of ODT) 4 mg 00:00: mouth [place] disintegrat 00 every 8 Medic al ing tablet (eight) Branch hours as needed for Nausea and Vomiting (N/V). traMADol 2019-0 Yes [id number] 50mg Take 1 Uni vers (ULTRAM) 50 9-06 tablet by ity of mg tablet 00:00: mouth [place] 00 every 8 Medical (eight) Branch hours as needed for Pain (scale 4-6). phenazopyri 2019-0 Yes [id number] 200mg Take 1 Univers dine 200 mg 9-06 tablet by ity of tablet 00:00: mouth 3 [place] 00 (three) Medical times Branch daily. ondansetron 2019-0 Yes [id number] 4mg Take 1 Univers (ZOFRAN 9-06 tablet by ity of ODT) 4 mg 00:00: mouth [place] disintegrat 00 every 8 Medic al ing tablet (eight) Branch hours as needed for Nausea and Vomiting (N/V). traMADol 2019-0 Yes [id number] 50mg Take 1 Uni vers (ULTRAM) 50 9-06 tablet by ity of mg tablet 00:00: mouth [place] 00 every 8 Medical (eight) Branch hours as needed for Pain (scale 4-6). Nitrofurant 2018-0 2019- No [id number] 100mg Take 1 Univers oin&Nit. 12-23 capsule by ity of [place] 00:00: 04:59 mouth 2 [place] (MACROBID) 00 :00 (two) Medical 100 mg times Branch capsule daily for 10 days. Nitrofurant 2019-0 2019- No [id number] 100mg Take 1 Univers oin&Nit. 12-23 capsule by ity of Mac[place]ryst 00:00: 00:00 mouth 2 [place] (MACROBID) 00 :00 (two) Medical 100 mg times Branch capsule daily for 10 days. benzonatate 2017-04 Yes 100mg Take 1 Uni vers 100 mg 2-26 capsule by ity of capsule 00:00: mouth 3 [place] 00 (three) Medical times Branch daily as needed for Cough. benzonatate 2017-04 Yes 100mg Take 1 Uni vers 100 mg 2-26 capsule by ity of capsule 00:00: mouth 3 00 (three) Medical times Branch daily as needed for Cough. Nitrofurant 2014-04- No 100mg Take 1 Cap Univers oin&Nit. 06-16 by mouth 2 ity of [place] 00:00: 00:00 (two) [place] (MACROBID) 00 :00 times Medical 100 mg daily. Branch capsule Nitrofurant 2014-04- No 100mg Take 1 Cap Univers oin&Nit. 06-16 by mouth 2 ity of Macrocryst 00:00: 00:00 (two) [place] (MACROBID) 00 :00 times Medical 100 mg daily. Branch capsule acetaminoph Yes 650mg Take 2 Uni vers en 7-26 Tabs by ity of (TYLENOL) 00:00: mouth [place] 325 mg 00 every 6 Medical tablet (six) Branch hours as needed for Temp > 38.5 C or Alternate with ibuprofen for pain scale 4-6. ibuprofen Yes 200mg Take 1 Tab U nivers (ADVIL) 200 7-26 by mouth 3 it y of mg tablet 00:00: (three) [place] 00 times Medical daily with Branch meals. acetaminoph Yes 650mg Take 2 Uni vers en 7-26 Tabs by ity of (TYLENOL) 00:00: mouth [place] 325 mg 00 every 6 Medical tablet (six) Branch hours as needed for Temp > 38.5 C or Alternate with ibuprofen for pain scale 4-6. ibuprofen Yes 200mg Take 1 Tab U nivers (ADVIL) 200 7-26 by mouth 3 it y of mg tablet 00:00: (three) [place] 00 times Medical daily with Branch meals. Immunizations Ordered Filled Immunization Date Status Comments [facility] e Immunization Name Name Td 2008-12-11 Completed [facility] 00:00:00 [facility] Td 2008-12-11 Completed [facility] 00:00:00 [facility] Vital Signs Vital Name Observation Time Observation Value Comments Source Systolic blood 2019-06-11 05:00:00 108 mm[Hg] Univer sity of pressure [facility] Diastolic blood 2019-06-11 05:00:00 78 mm[Hg] Unive rsity of pressure [facility] Heart rate 2019-06-11 05:00:00 62 /min Universi ty of [facility] Respiratory rate 2019-06-11 05:00:00 18 /min Univ ersity of [facility] Oxygen saturation in 2019-06-11 05:00:00 100 /min University of Arterial blood by [place] [facility] Pulse oximetry Branch Body temperature 2019-06-11 03:35:00 36.67 Solange [facility] ersity of [facility] Body height 2019-06-11 03:35:00 162.6 cm Universi ty of [facility] Body weight 2019-06-11 03:35:00 99.791 kg Universi ty of [facility] BMI 2019-06-11 03:35:00 37.76 kg/m2 Universi ty of [facility] Systolic blood 2018-12-24 00:06:00 117 mm[Hg] Univer sity of pressure [facility] Diastolic blood 2018-12-24 00:06:00 83 mm[Hg] Unive rsity of pressure [facility] Heart rate 2018-12-24 00:06:00 110 /min Universi ty of [facility] Body temperature 2018-12-24 00:06:00 38.89 Solange Univ ersity of [facility] Respiratory rate 2018-12-24 00:06:00 18 /min Univ ersity of [facility] Body weight 2018-12-24 00:06:00 95.255 kg Universi ty of [facility] BMI 2018-12-24 00:06:00 31.93 kg/m2 Universi ty of [facility] Oxygen saturation in 2018-12-24 00:06:00 98 /min University of Arterial blood by [place] [facility] Pulse oximetry Branch Procedures Procedure Date / Time Performing Clinician Source Performed CBC WITH DIFFERENTIAL 2019-06-11 04:36:00 [facility] [place] [facility] URINALYSIS 2019-06-11 04:36:00 Kari Gupta Universi ty of [facility] MAGNESIUM 2019-06-11 04:36:00 Kari Gupta [facility] TROPONIN I 2019-06-11 04:36:00 Kari Gupta [facility] COMP. METABOLIC PANEL 2019-06-11 04:36:00 [facility] [place] ([id number] CT HEAD WO CONTRAST 2019-06-11 04:31:35 Kari Gupta [facility] XR CHEST 2 VW 2019-06-11 04:31:19 Kari Gupta [facility] POCT TEST 2019-06-11 04:20:00 Kari Gupta [facility] EKG-12 LEAD 2019-06-11 04:06:54 Kari Gupta [facility] NOTICE OF PRIVACY 2019-06-11 03:30:43 Doctor Unassigned, No [facility] ASSIGNMENT OF BENEFITS 2019-06-11 03:28:06 Doctor Unassigned, No [facility] Branch CONSENT/REFUSAL FOR 2019-06-11 03:27:44 Doctor Unassigned, No Un iversity of [place] DIAGNOSIS AND TREATMENT [facility] CONSENT/REFUSAL FOR 2019-06-11 03:27:32 Doctor Unassigned, No [facility] [place] [facility] CONSENT/REFUSAL FOR 2018-12-23 23:43:48 Doctor Unassigned, No [facility] [place] [facility] Encounters Start End Encounter Admission Attending Care Care Encounter Source Date/Time Date/Time Type Type Clinicians Facility Department ID 2019-06-10 2019-06-10 Emergency Alonso [facility] [id number] Univers 21:39:53 23:49:00 Kari Chow [id number] Ketan [id number] [facility] [id number] [facility] 084 Branch 2019-06-10 2019-06-10 Emergency X ALONSO [facility] ERT [id number] Univers 21:39:53 23:49:00 KARI pickett [facility] 2018-12-23 2018-12-23 Emergency Maged, [facility] [id number] Univers 19:23:37 20:05:00 Ean Chow [id number] i [place] [id number] [facility] [id number] [place] [id number] [place] Results Test Description Test Time Test Comments Results Result Comments Source TROPONIN I 2019-06-11 05:27:00 Test Item Value Reference Range Interpretation Comme nts TROPONIN I (test code = 0.001 ng/mL See_Comment [Au tomated message] The 2981462668) system which ge nerated this result tra nsmitted reference range : <=0.034. The reference r marci was not used to int erpret this result as normal/abnormal . TRAVIS (test code = TRAVIS) Equal or Less than 0.034 ng/ml---Normal ?Note: Cardiac troponin begins to rise 3-4 hours after the onset of ischemia. Repeat in 4-6 hours if the sample was drawn within 3-4 hours of the onset of the symptom and found normal. Between 0.035 and 0.120 ng/mL--- Borderline. Questionable myocardial injury or necrosis ? ?Note: Serial measurement may be necessary to confirm or exclude the diagnosis of myocardial injury or necrosis; Clinical correlation (symptoms, EKGs, imaging studies, and others) required; Repeat in 4-6 hours if clinically indicated. ? Equal or Higher than 0.121 ng/mL---Abnormal. Myocardial Injury or Necrosis Likely ? Biotin has been reported to cause a negative bias, interpret results relative to patient's use of biotin. ? Lab Interpretation (test Normal code = 61573-3) [facility]40[facility]2019-06-11 05:17:00 Test Item Value Reference Range Interpretation Comments NA (test code = 140 mmol/L 135-145 6874140506) K (test code = 3.9 mmol/L 3.5-5 5013983881) CL (test code = 104 mmol/L 98-108 3852294017) CO2 TOTAL (test code = 26 mmol/L 23-31 2491147192) AGAP (test code = 2-16 3349508515) BUN (test code = 16 mg/dL 7-23 3519632933) GLUCOSE (test code = 95 mg/dL 70-110 3891588705) CREATININE (test code 0.86 mg/dL 0.5-1.04 = 1263817882) TOTAL BILI (test code 0.4 mg/dL 0.1-1.1 = 6880110812) CALCIUM (test code = 9.6 mg/dL 8.6-10.6 9654906548) T PROTEIN (test code = 7.8 g/dL 6.3-8.2 3219824793) ALBUMIN (test code = 4.7 g/dL 3.5-5 3279844484) ALK PHOS (test code = 94 U/L 34-122 3888220011) ALTv (test code = 18 U/L 5-35 1742-6) AST(SGOT) (test code = 26 U/L 13-40 7166643585) eGFR Calculation mL/min/1.73m2 (Non-) (test code = 2683634374) eGFR Calculation mL/min/1.73m2 () (test code = 2413799523) TRAVIS (test code = TRAVIS) Association of Glomerular Filtration Rate (GFR) and Staging of Kidney Disease* + -+ + ---+| GFR (mL/min/1.73 m2) ?| With Kidney Damage ?| ?Without Kidney Damage+ -------+ ------+ ---------+| ?>90 ?| ?Stage one ?| ? Normal ?+ --+ -+ ----+| ?60-89 ?| ?Stage two ?| ? Decreased GFR ? + -+ + ---+| ?30-59 ?| ?Stage three ?| ? Stage three ? + -+ + ---+| ?15-29 ?| ?Stage four ? | ? Stage four ?+ --+ -+ ----+| ?<15 (or dialysis) ? ?| ?Stage five ? | ? Stage five ?+ --+ -+ ----+ *Each stage assumes the associated GFR level has been in effect for at least three months. ?Stages 1 to 5, with or without kidney disease, indicate chronic kidney disease. Notes: Determination of stages one and two (with eGFR >59mL/min/1.73 m2) requires estimation of kidney damage for at least three months as defined by structural or functional abnormalities of the kidney, manifested by either:Pathological abnormalities or Markers of kidney damage (including abnormalities in the composition of the blood or urine or abnormalities in imaging tests). [facility] 05:17:00 Test Item Value Reference Range Interpretation Comments MAGNESIUM (test code = 0651667835) 2.2 mg/dL 1.7-2.4 Lab Interpretation (test code = Normal 09292-3) [facility] 05:13:00 Test Item Value Reference Range Interpretation Comments APPEARANCE (test code = Clear Clear 0611697437) COLOR (test code = Yellow Yellow 3102550134) PH (test code = 4.8-8.0 8923671497) SP GRAVITY (test code = 1.003-1.030 5269272120) GLU U QUAL (test code = Normal Normal 0846482652) BLOOD (test code = Negative Negative 0050378750) KETONES (test code = Negative Negative 5510469452) PROTEIN (test code = Negative Negative 2887-8) UROBILIN (test code = 4.0 mg/dL Normal A 9633016550) BILIRUBIN (test code = Negative Negative 2987189220) NITRITE (test code = Negative Negative 1261131747) LEUK ITA (test code = Negative Negative 5539206226) RBC/HPF (test code = See_Comment [Autom ated message] 6252621990) The system [employer] generated this result transmit archie reference range : 0 - 3 HPF. The refe rence range was not u sed to interpret th is result as normal/abnormal . WBC/HPF (test code = <1 See_Comment [Autom ated message] 2126151564) The system [employer] generated this result transmit archie reference range : 0 - 5 HPF. The refe rence range was not u sed to interpret th is result as normal/abnormal . BACTERIA (test code = Negative Negative 9619690268) MUCOUS (test code = Slight Negative LPF A 2142696663) SQ EPITH (test code = HPF 1235999483) Lab Interpretation (test Abnormal code = 39863-3) [facility] WITH [id number] 05:01:00 Test Item Value Reference Range Interpretation Comments WBC (test code = See_Comment H [Automated 6690-2) message] The sy stem which generated this result transmitted reference range : 4.30 - 11.10 10*3/?L. The reference range was not used to interpret this result as normal/abnormal . RBC (test code = See_Comment [Automated 789-8) message] The sy stem which generated this result transmitted reference range : 3.93 - 5.25 10*6/?L. The reference range was not used to interpret this result as normal/abnormal . HGB (test code = 13.7 g/dL 11.6-15 718-7) HCT (test code = 40.7 % 35.7-45.2 4544-3) MCV (test code = 86.6 fL 80.6-95.5 787-2) MCH (test code = 29.1 pg 25.9-32.8 785-6) MCHC (test code = 33.7 g/dL 31.6-35.1 786-4) RDW-SD (test code = 39.5 fL 39-49.9 89760-4) RDW-CV (test code = 12.5 % 12-15.5 788-0) PLT (test code = See_Comment [Automated 777-3) message] The sy stem which generated this result transmitted reference range : 166 - 358 10*3/ ?L. The reference r marci was not used to interpret this result as normal/abnormal . MPV (test code = 10.2 fL 9.5-12.9 13279-2) NRBC/100 WBC (test See_Comment [Automat ed code = 4306565279) message] The system which generated this result transmitted reference range : 0.0 - 10.0 /100 WBCs. The refer ence range was not u sed to interpret th is result as normal/abnormal . NRBC x10^3 (test code <0.01 See_Comment [Auto mated = 3434932787) message] The s ystem which generated this result transmitted reference range : 10*3/?L. The reference range was not used to interpret this result as normal/abnormal . GRAN MAT (NEUT) % 50.5 % (test code = 770-8) IMM GRAN % (test code 0.60 % = 8444947835) LYMPH % (test code = 37.2 % 736-9) MONO % (test code = 8.5 % 5905-5) EOS % (test code = 2.5 % 713-8) BASO % (test code = 0.7 % 706-2) GRAN MAT x10^3(ANC) 5.68 10*3/uL 1.88-7.09 (test code = 9556937284) IMM GRAN x10^3 (test 0.07 10*3/uL 0-0.06 H code = 4296663815) LYMPH x10^3 (test code 4.19 10*3/uL 1.32-3.29 H = 731-0) MONO x10^3 (test code 0.96 10*3/uL 0.33-0.92 H = 742-7) EOS x10^3 (test code = 0.28 10*3/uL 0.03-0.39 711-2) BASO x10^3 (test code 0.08 10*3/uL 0.01-0.07 H = 704-7) Lab Interpretation Abnormal (test code = 46806-7) [facility] 2 [id number] 04:44:18 No acute cardiopulmonary process. Preliminary Report Dictated by Resident: Luana Ga MD., have reviewed this study and agree with theove report.XR CHEST 2 VW HISTORY: chest pain COMPARISON: X-ray dated 04/15/2015 FINDINGS: The lungs are well expanded and clear. The costophrenic angles are clear.The heart is normal in size. No pneumothorax is found. Nipple piercings are seen. [facility], Radiant Results Inft User - 06/10/2019 10:45 PM CSTXR CHEST 2 VWHISTORY: chest pain COMPARISON: X-ray dated 04/15/2015FINDINGS: The lungs are well expanded and clear. The costophrenicangles are clear.The heart is normal in size.No pneumothorax is found. Nipple piercings are seen.IMPRESSIONNo acute cardiopulmonary process.Preliminary Report Dictated by Resident: Luana Rodríguez MD., have reviewed this study and agree with theabove report.[facility] [id number] 04:20:00 Test Item Value Reference Range Interpretation Comments POCT PREG (test code = 1605) negative On board controls acceptable with present C Line (test code = 3574) POCT PREG LOT # (test code = 3575) [id number] POCT PREG TEST DATE (test 2020-11-16 code = 3576) Lab Interpretation (test code = Normal 68481-1) [facility]"
[2022-07-02 08:36] LABS: Absolute Lymphocytes (CBC) 2.2 K/uL (0.7-4.9); Hematocrit 39.5 % (36.0-45.0); Lymphocytes % 24.2 % (15.3-44.8); MCV 87.1 fL (80-100); MPV 8.1 fL (7.6-11.3); RBC Red Blood Cell Count 4.53 M/uL (3.86-4.86)
[2022-07-02 08:51] LABS: Urine Blood Negative (Negative); Urine Glucose Negative (Negative); Urine Protein Trace (Negative); Urine pH 7.5 (5.0-7.0)
--- NOTE | 2022-07-02 09:09 | RAD REPORT ---
EXAM DESCRIPTION: US - Transvaginal OB - 07/02/2022 8:51 am CLINICAL HISTORY: with abdominal pain COMPARISON: None FINDINGS: The uterus measures 8 x 5 x 6 centimeters. A normal appearing gestational sac is present within the endometrium. Within this is a yolk sac and pole with a crown-rump length 1.1 centime ters. Cardiac activity 111 beats per minute Right and left ovary appear normal. 1.8 centimeter cyst right ovary The right and left adnexa are unremarkable No significant free fluid is seen. IMPRESSION: Single live intrauterine with an estimated gestational age 6 weeks 1 day HALIMA 02/24/2023
[2022-07-02 09:41] LABS: Potassium 4.1 mmol/L (3.5-5.1)
--- NOTE | 2022-07-02 10:02 | EDPHYS ---
Physician Documentation [facility] Name: Cristopher Deleon Age: 26 yrs Sex: Female : 1995 Arrival Date: 07/02/2022 Time: 08:06 Bed 13 Private MD: ED Physician Yovani Carson Historical: - Allergies: 07/02 08:20 Codeine; db 08:20 talc; db 08:20 Sulfa; db - PMHx: 08:20 Anxiety; db - Immunization history:: Adult Immunizations unknown. - Social history:: Smoking status: Patient reports the use of cigarette tobacco products, Patient/guardian denies using tobacco, Stopped _ months ago 1. Vital Signs: 08:18 BP 112 / 66; Pulse 82; Resp 16; Temp 98.2; Pulse Ox 100% on R/A; Weight 99.34 kg; db Height 5 ft. 8 in. ; Pain 7/10; 08:18 Body Mass Index 33.30 (99.34 kg, 172.72 cm) db 08:18 Pain Scale: Adult db MDM: 08:07 Patient medically screened. kb 07/02 08:13 Order name: IV Saline Lock; Complete Time: 08:22 kb 07/02 08:13 Order name: Labs collected and sent; Complete Time: 08:22 kb 07/02 08:13 Order name: NPO; Complete Time: 08:22 kb 07/02 08:13 Order name: Urine Dipstick-Ancillary (obtain specimen); Complete Time: 08:41 kb 07/02 08:13 Order name: Urine Test (obtain specimen); Complete Time: 08:41 kb 07/02 08:13 Order name: Abo/rh Typing; Complete Time: 08:51 kb 07/02 08:13 Order name: CBC with Diff; Complete Time: 08:51 kb 07/02 08:50 Order name: Urine --Ancillary (enter results); Complete Time: 08:57 bd 07/02 08:13 Order name: US Transvaginal Ob; Complete Time: 09:12 kb 07/02 08:49 Order name: Urine Dipstick-Ancillary; Complete Time: 08:52 EDMS 07/02 08:13 Order name: Basic Metabolic Panel; Complete Time: 09:55 kb 07/02 08:13 Order name: Quantitative Hcg; Complete Time: 09:55 kb Administered Medications: 08:51 Drug: NS 0.9% IV 1000 ml Route: IV; Rate: 1000 ml; Site: right antecubital; db 09:46 Follow up: Response: No adverse reaction; IV Status: Completed infusion; IV Intake: db 1000ml 08:53 Drug: Acetaminophen PO 1000 mg Route: PO; db 09:46 Follow up: Response: No adverse reaction db Disposition Summary: 07/02/22 10:01 Discharge Ordered Location: Home kb Condition: Stable kb Diagnosis - Lower abdominal pain, unspecified kb - Less than 8 weeks gestation of kb Followup: kb - With: Emergency Department - When: As needed - Reason: Worsening of condition Followup: kb - With: Private Physician - When: 2 - 3 days - Reason: Recheck today's complaints, Continuance of care, Re-evaluation by your physician Discharge Instructions: - Discharge Summary Sheet kb - First Trimester of , Bgqv-ek-Gutk kb - Abdominal Pain During , Tccp-oc-Lrms kb Forms: - Medication Reconciliation Form kb - Thank You Letter kb - Antibiotic Education kb - Prescription Opioid Use kb Signatures: Dispatcher [employer] Shannan Benitez, STORAGE WORKER-C STORAGE WORKER-Jackelyn Marsh, RN RN db
--- NOTE | 2022-07-02 10:02 | ER ---
Nurse's Notes [facility] Name: Cristopher Deleon Age: 26 yrs Sex: Female : 1995 Arrival Date: 07/02/2022 Time: 08:06 Bed 13 Private MD: Diagnosis: Lower abdominal pain, unspecified;Less than 8 weeks gestation of Presentation: 07/02 08:18 Chief complaint: Patient states: Patient complains of suprapubic pain since yesterday db denies bleeding complains of nausea. states is approximately 6 weeks . Coronavirus screen: Vaccine status: Patient reports being unvaccinated. Client denies travel out of the [place] in the last 14 days. At this time, the client does not indicate any symptoms associated with coronavirus-19. Ebola Screen: Patient negative for fever greater than or equal to 101.5 degrees Fahrenheit, and additional compatible Ebola Virus Disease symptoms Patient denies exposure to infectious person. Patient denies travel to an Ebola-affected area in the 21 days before illness onset. No symptoms or risks identified at this time. Initial Sepsis Screen: Does the patient meet any 2 criteria? No. Patient's initial sepsis screen is negative. Does the patient have a suspected source of infection? No. Patient's initial sepsis screen is negative. Risk Assessment: Do you want to hurt yourself or someone else? Patient reports no desire to harm self or others. Onset of symptoms was July 01, 2022. 08:18 Method Of Arrival: Ambulatory db 08:18 Acuity: OZZIE 3 db Triage Assessment: 08:21 General: Appears in no apparent distress. comfortable, Behavior is calm, cooperative. db Pain: Complains of pain in abdomen. GI: Abdomen is flat, non-distended. Historical: - Allergies: 08:20 Codeine; db 08:20 talc; db 08:20 Sulfa; db - PMHx: 08:20 Anxiety; db - Immunization history:: Adult Immunizations unknown. - Social history:: Smoking status: Patient reports the use of cigarette tobacco products, Patient/guardian denies using tobacco, Stopped _ months ago 1. Screenin:22 [facility] ED Fall Risk Assessment (Adult) History of falling in the last 3 months, db including since admission No falls in past 3 months (0 pts) Confusion or Disorientation No (0 pts) Intoxicated or Sedated No (0 pts) Impaired Gait No (0 pts) Mobility Assist Device Used No (0 pt) Altered Elimination No (0 pt) Score/Fall Risk Level 0 - 2 = Low Risk Oriented to surroundings, Maintained a safe environment. Abuse screen: Denies threats or abuse. Denies injuries from another. Nutritional screening: No deficits noted. Tuberculosis screening: No symptoms or risk factors identified. Assessment: 08:21 Reassessment: Patient appears in no apparent distress at this time. Patient and/or db family updated on plan of care and expected duration. Pain level reassessed. Patient is alert, oriented x 3, equal unlabored respirations, skin warm/dry/pink. General: Appears in no apparent distress. comfortable, Behavior is calm, cooperative. Neuro: Level of Consciousness is awake, alert, obeys commands, Oriented to person, place, time, situation. Vital Signs: 08:18 BP 112 / 66; Pulse 82; Resp 16; Temp 98.2; Pulse Ox 100% on R/A; Weight 99.34 kg; db Height 5 ft. 8 in. ; Pain 7/10; 08:18 Body Mass Index 33.30 (99.34 kg, 172.72 cm) db 08:18 Pain Scale: Adult db ED Course: 08:06 Patient arrived in ED. mr 08:07 [facility]annan Redmond [facility]-C [facility] kb 08:07 Yovani Carson MD is Attending Physician. kb 08:18 Jackelyn Gamlbe, RN is Primary Nurse. db 08:20 Triage completed. db 08:21 Arm band placed on Patient placed in an exam room. db 08:22 Inserted saline lock: 20 gauge in right antecubital area, using aseptic technique. db Blood collected. 08:53 US Transvaginal Ob In Process Unspecified. EDMS Administered Medications: 08:51 Drug: NS 0.9% IV 1000 ml Route: IV; Rate: 1000 ml; Site: right antecubital; db 09:46 Follow up: Response: No adverse reaction; IV Status: Completed infusion; IV Intake: db 1000ml 08:53 Drug: Acetaminophen PO 1000 mg Route: PO; db 09:46 Follow up: Response: No adverse reaction db Intake: 09:46 IV: 1000ml; Total: 1000ml. db Outcome: 10:01 Discharge ordered by . kb Signatures: Dispatcher [employer] Shannan Benitez, COMMERCIAL PROJECT MANAGER-C COMMERCIAL PROJECT MANAGER-Galilea Olmos Danielle, RN RN db
[2022-07-02 14:24] VITALS: TEMP 98.2
[2022-07-02 14:25] VITALS: BP 105/85; O2SAT 99
== END 2022-07-02 10:18 | disposition home or self-care (01) ==
LOC: ER 08:04
DX: O26.891 Other specified pregnancy related conditions, first trimester (principal); Z3A.01 Less than 8 weeks gestation of pregnancy
CPT/HCPCS: 36415; 76817; 80048; 81003; 81025; 84702; 85025; 86900; 86901; 96360; 99284

== ENCOUNTER 2024-04-21 19:37 | Emergency (ER) | payer SELFPAY ==
[2024-04-21] MEDS ORDERED: METHYLPREDNISOLONE 125 MG INJ ONE (19:51)
[2024-04-21] MEDS ORDERED: DIPHENHYDRAMINE 50 MG/ML VIAL ONE (19:52)
[2024-04-21] MEDS ORDERED: FAMOTIDINE 20 MG/2 ML VIAL IV ONE (19:52)
[2024-04-21] MEDS ORDERED: predniSONE 20 MG TAB ONE (19:52)
[2024-04-21] MEDS ORDERED: NA CHLORIDE 0.9% 1,000 ML ONE (19:52)
--- NOTE | 2024-04-21 20:07 | ER ---
Nurse's Notes [facility] Name: Cristopher Deleon Age: 28 yrs Sex: Female : 1995 Arrival Date: 04/21/2024 Time: 19:37 Bed 18 Private MD: Diagnosis: Allergy to other foods;Allergy, unspecified;Urticaria, unspecified Presentation: 04/21 19:48 Chief complaint: Patient states: WAS EATING APPROX 1 HOUR AGO AND BEGAN FEELING FLUSHED dd2 AND ITCHING ALL OVER, THROAT TINGLING AND DIFFICULTY CATCHING A BREATH. PT DENIES FOOD ALLERGIES. Coronavirus screen: At this time, the client does not indicate any symptoms associated with coronavirus-19. Ebola Screen: No symptoms or risks identified at this time. Onset: The symptoms/episode began/occurred suddenly, 1 hour(s) ago. Anaphylaxis evaluation, the patient reports or I have noted the following symptoms which indicate a significant risk of anaphylaxis: urticaria. Initial Sepsis Screen: Does the patient meet any 2 criteria? No. Patient's initial sepsis screen is negative. Does the patient have a suspected source of infection? No. Patient's initial sepsis screen is negative. Risk Assessment: Do you want to hurt yourself or someone else? Patient reports no desire to harm self or others. Onset of symptoms was April 21, 2024. 19:48 Method Of Arrival: Ambulatory dd2 19:48 Acuity: OZZIE 3 dd2 Triage Assessment: 19:50 General: Appears uncomfortable, Behavior is cooperative, appropriate for age, anxious. dd2 Pain: Denies pain. AUDIOMETRIST: 21:15 LMP N/A - control method, Not me1 Historical: - Allergies: 19:50 Codeine; dd2 19:50 Sulfa; dd2 19:50 talc; dd2 - PMHx: 19:50 Anxiety; dd2 - PSHx: 19:50 None; dd2 - Immunization history:: Adult Immunizations up to date, Flu vaccine is not up to date. It has been more than one year since last vaccine. - Infectious Disease History:: Denies. - Social history:: Smoking status: Patient denies any tobacco usage or history of. Screenin:50 [facility] ED Fall Risk Assessment (Adult) History of falling in the last 3 months, me1 including since admission No falls in past 3 months (0 pts) Confusion or Disorientation No (0 pts) Intoxicated or Sedated No (0 pts) Impaired Gait No (0 pts) Mobility Assist Device Used No (0 pt) Altered Elimination No (0 pt) Score/Fall Risk Level 0 - 2 = Low Risk Maintained a safe environment, Provided non-skid footwear, Hourly rounding (assess needs \T\ fall precautionary measures) done. Abuse screen: Denies threats or abuse. Nutritional screening: No deficits noted. Tuberculosis screening: No symptoms or risk factors identified. Assessment: 19:50 General: Appears uncomfortable, well groomed, well developed, well nourished, Behavior me1 is calm, cooperative, appropriate for age, Reports WAS EATING APPROX 1 HOUR AGO AND BEGAN FEELING FLUSHED AND ITCHING ALL OVER, THROAT TINGLING AND DIFFICULTY CATCHING A BREATH. PT DENIES FOOD ALLERGIES. Pain: Denies pain. Neuro: Level of Consciousness is awake, alert, obeys commands, Oriented to person, place, time, situation, Appropriate for age. Cardiovascular: Patient's skin is warm and dry. Respiratory: Reports shortness of breath Airway is patent Trachea midline Respiratory effort is even, unlabored, Respiratory pattern is regular, symmetrical, Breath sounds are clear bilaterally. GI: No signs and/or symptoms were reported involving the gastrointestinal system. : No signs and/or symptoms were reported regarding the genitourinary system. EENT: Reports throat is tingling. Derm: Skin is intact, is healthy with good turgor, Skin is pink, warm \T\ dry. Derm: Rash noted that is urticaria, generalized. Musculoskeletal: No signs and/or symptoms reported regarding the musculoskeletal system. 21:05 Reassessment: Discharge delayed to finish IV fluids. me1 Vital Signs: 19:48 BP 126 / 97; Pulse 126; Resp 19; Temp 98.4; Pulse Ox 99% on R/A; Weight 104.33 kg; dd2 Height 5 ft. 8 in. ; 20:00 BP 110 / 50; Pulse 102; Resp 16; Pulse Ox 100% ; me1 21:00 BP 119 / 72; Pulse 95; Resp 16; Temp 98; Pulse Ox 100% ; me1 19:48 Body Mass Index 34.97 (104.33 kg, 172.72 cm) dd2 ED Course: 19:41 Patient arrived in ED. gm2 19:42 Yg Rushing MD is Attending Physician. sudha 19:50 Zeenat Barker, MEGHNA is Primary Nurse. me1 19:50 Triage completed. dd2 19:50 Arm band placed on right wrist. Patient placed in an exam room, on a stretcher, on dd2 pulse oximetry. 19:50 Patient has correct armband on for positive identification. Bed in low position. Call me1 light in reach. Side rails up X2. Provided Education on: POC. Verbalized undrestanding.. Client placed on continuous cardiac and pulse oximetry monitoring. NIBP monitoring applied. Pulse ox on. NIBP on. 19:50 No provider procedures requiring assistance completed. me1 20:09 Initial lab(s) drawn, by me, sent to lab. Inserted saline lock: 22 gauge in right me1 antecubital area, using aseptic technique. 21:20 IV discontinued, intact, bleeding controlled, No redness/swelling at site. Pressure me1 dressing applied. Administered Medications: 20:10 Drug: diphenhydrAMINE IVP 50 mg IVP once Route: IVP; Site: right antecubital; me1 21:10 Follow up: Response: No adverse reaction; Marked relief of symptoms me1 20:10 Drug: Famotidine IVP 40 mg IVP once; dilute with 10 mL 0.9% NaCl; give over 2 minutes me1 Route: IVP; Site: right antecubital; 21:11 Follow up: Response: No adverse reaction; Marked relief of symptoms me1 20:10 Drug: MethylPrednisoLONE IVP 125 mg IVP once Route: IVP; Site: right antecubital; me1 21:11 Follow up: Response: No adverse reaction; Marked relief of symptoms me1 20:11 Drug: NS 0.9% IV 1000 ml IV at 1 bolus Per protocol; to be given as a bolus over 60 me1 minutes Route: IV; Rate: 1 bolus; Site: right antecubital; 21:10 Follow up: Response: No adverse reaction; IV Status: Completed infusion; IV Intake: me1 1000ml 20:13 Drug: predniSONE PO 60 mg PO once Route: PO; me1 21:11 Follow up: Response: No adverse reaction; Marked relief of symptoms me1 20:23 Drug: Albuterol Inhalation 2.5 mg Inhalation once Route: Inhalation; me1 21:11 Follow up: Response: No adverse reaction me1 20:23 Drug: Ipratropium Inhalation Aerosol 0.5 mg Inhalation once Route: Inhalation; me1 21:11 Follow up: Response: No adverse reaction me1 Medication: 19:50 VIS not applicable for this client. me1 Intake: 21:10 IV: 1000ml; Total: 1000ml. me1 Outcome: 20:07 Discharge ordered by . sudha 21:20 Discharged to home ambulatory, with family, me1 21:20 Condition: stable 21:20 Discharge instructions given to patient, family, Instructed on discharge instructions, follow up and referral plans. medication usage, Demonstrated understanding of instructions, follow-up care, medications, Prescriptions given X 4, 21:21 Patient left the ED. me1 Signatures: Yg Rushing MD MD cha Eddleman, Michelle, RN RN me1 Carri Graves gm2 ALFONSO BEEBE RN RN dd2 Corrections: (The following items were deleted from the chart) 20:10 19:48 Chief complaint: Patient states: WAS EATING APPROX 1 HOUR AGO AND BEGAN FEELING me1 FLUSHED AND ITCHING ALL OVER, THROAT TINGLING AND DIFFICULTY CATCHING A BREATH. PT DENIES FOOD ALLERGIES dd2 21:12 19:48 Chief complaint: Patient states: WAS EATING APPROX 1 HOUR AGO AND BEGAN FEELING me1 FLUSHED AND ITCHING ALL OVER, THROAT TINGLING AND DIFFICULTY CATCHING A BREATH. PT DENIES FOOD ALLERGIES me1
--- NOTE | 2024-04-21 20:07 | EDPHYS ---
Physician Documentation [facility] Name: Cristopher Deleon Age: 28 yrs Sex: Female : 1995 Arrival Date: 04/21/2024 Time: 19:37 Bed 18 Private MD: ED Physician gY Rushing HPI: 04/21 19:53 This 28 yrs old Female presents to ER via Ambulatory with complaints of sudha Allergic Reaction, Breathing Difficulty. 19:53 The patient presents with dizziness, itching, redness of skin. Onset: The sudha symptoms/episode began/occurred just prior to arrival. Associated signs and symptoms: Pertinent positives: hives, rash, swelling. Possible causes: At home the patient or guardian has treated the symptoms with nothing. Severity of symptoms: At their worst the symptoms were mild moderate in the emergency department the symptoms have improved moderately. It is unknown whether or not the patient has had similar symptoms in the past. FISH GRADER: 21:15 LMP N/A - control method, Not me1 Historical: - Allergies: 19:50 Codeine; dd2 19:50 Sulfa; dd2 19:50 talc; dd2 - PMHx: 19:50 Anxiety; dd2 - PSHx: 19:50 None; dd2 - Immunization history:: Adult Immunizations up to date, Flu vaccine is not up to date. It has been more than one year since last vaccine. - Infectious Disease History:: Denies. - Social history:: Smoking status: Patient denies any tobacco usage or history of. ROS: 19:56 Constitutional: Negative for fever, chills, and weight loss, Eyes: Negative for injury, sudha pain, redness, and discharge, ENT: Negative for injury, pain, and discharge, Neck: Negative for injury, pain, and swelling, Cardiovascular: Negative for chest pain, palpitations, and edema, Respiratory: Negative for shortness of breath, cough, wheezing, and pleuritic chest pain, Abdomen/GI: Negative for abdominal pain, nausea, vomiting, diarrhea, and constipation, Back: Negative for injury and pain, : Negative for injury, bleeding, discharge, and swelling, MS/Extremity: Negative for injury and deformity, Neuro: Negative for headache, weakness, numbness, tingling, and seizure, Psych: Negative for depression, anxiety, suicide ideation, homicidal ideation, and hallucinations, Allergy/Immunology: Negative for hives, rash, and allergies, Endocrine: Negative for neck swelling, polydipsia, polyuria, polyphagia, and marked weight changes, Hematologic/Lymphatic: Negative for swollen nodes, abnormal bleeding, and unusual bruising, 19:56 Skin: Positive for rash, hives, Exam: 19:56 Constitutional: This is a well developed, well nourished patient who is awake, alert, sudha and in no acute distress. Eyes: Pupils equal round and reactive to light, extra-ocular motions intact. Lids and lashes normal. Conjunctiva and sclera are non-icteric and not injected. Cornea within normal limits. Periorbital areas with no swelling, redness, or edema. ENT: Nares patent. No nasal discharge, no septal abnormalities noted. Tympanic membranes are normal and external auditory canals are clear. Oropharynx with no redness, swelling, or masses, exudates, or evidence of obstruction, uvula midline. Mucous membranes moist. Neck: Trachea midline, no thyromegaly or masses palpated, and no cervical lymphadenopathy. Supple, full range of motion without nuchal rigidity, or vertebral point tenderness. No Meningismus. Chest/axilla: Normal chest wall appearance and motion. Nontender with no deformity. No lesions are appreciated. Cardiovascular: Regular rate and rhythm with a normal S1 and S2. No gallops, murmurs, or rubs. Normal PMI, no JVD. No pulse deficits. Respiratory: Lungs have equal breath sounds bilaterally, clear to auscultation and percussion. No rales, rhonchi or wheezes noted. No increased work of breathing, no retractions or nasal flaring. Abdomen/GI: Soft, non-tender, with normal bowel sounds. No distension or tympany. No guarding or rebound. No evidence of tenderness throughout. MS/ Extremity: Pulses equal, no cyanosis. Neurovascular intact. Full, normal range of motion., bilateral aka Neuro: Awake and alert, GCS 15, oriented to person, place, time, and situation. Cranial nerves II-XII grossly intact. Motor strength 5/5 in all extremities. Sensory grossly intact. Cerebellar exam normal. Normal gait. Psych: Awake, alert, with orientation to person, place and time. Behavior, mood, and affect are within normal limits. 19:56 Head/face: Noted is rash, of the right cheek, left cheek and mouth, 19:56 ENT: Mouth: Lips: normal, Oral mucosa: normal, moist, Gums: normal with healthy appearance, Tongue: is normal, abscess, is not appreciated, Posterior pharynx: is normal, no acute changes, Airway: normal, no evidence of obstruction, 20:05 Respiratory: the patient does not display signs of respiratory distress, Respirations: sudha normal, no acute changes, Breath sounds: are clear throughout, no bronchial sounds, no decreased breath sounds, no rales, rhonchi, no stridor, no wheezing, Respiratory rate: 18 20:05 Musculoskeletal/extremity: DVT Exam: No signs of deep vein thrombosis. no pain, no swelling, no tenderness, negative Homans' sign noted on exam, no appreciated bluish discoloration, no erythema, no increased warmth, Vital Signs: 19:48 BP 126 / 97; Pulse 126; Resp 19; Temp 98.4; Pulse Ox 99% on R/A; Weight 104.33 kg; dd2 Height 5 ft. 8 in. ; 20:00 BP 110 / 50; Pulse 102; Resp 16; Pulse Ox 100% ; me1 21:00 BP 119 / 72; Pulse 95; Resp 16; Temp 98; Pulse Ox 100% ; me1 19:48 Body Mass Index 34.97 (104.33 kg, 172.72 cm) dd2 MDM: 19:42 Medical Screening Exam initiated sudha 19:57 Differential diagnosis: allergic reaction, anaphylaxis, angioedema, Mastocystosis non sudha IgE mediated drug reaction urticaria. Data reviewed: vital signs, nurses notes, lab test result(s), CBC, electrolytes, hepatic panel. Consideration of Admission/Observation Escalation of care including admission/observation considered. I considered the following discharge prescriptions or medication management in the emergency department Medications were administered in the Emergency Department. See MAR. Test considered but Not performed: X-ray: no cxr. Historians other than the Patient: pt well informed. Care significantly affected by the following chronic conditions: anxiety. Counseling: I had a detailed discussion with the patient and/or guardian regarding the historical points, exam findings, and any diagnostic results supporting the discharge/admit diagnosis, lab results, the need for outpatient follow up, for definitive care, an allergy/[employer] senior specialist, an ENT specialist. 04/21 19:45 Order name: CBC with Diff; Complete Time: 20:26 sudha 04/21 19:45 Order name: Comprehensive Metabolic Panel sudha Administered Medications: 20:10 Drug: diphenhydrAMINE IVP 50 mg IVP once Route: IVP; Site: right antecubital; me1 21:10 Follow up: Response: No adverse reaction; Marked relief of symptoms me1 20:10 Drug: Famotidine IVP 40 mg IVP once; dilute with 10 mL 0.9% NaCl; give over 2 minutes me1 Route: IVP; Site: right antecubital; 21:11 Follow up: Response: No adverse reaction; Marked relief of symptoms me1 20:10 Drug: MethylPrednisoLONE IVP 125 mg IVP once Route: IVP; Site: right antecubital; me1 21:11 Follow up: Response: No adverse reaction; Marked relief of symptoms me1 20:11 Drug: NS 0.9% IV 1000 ml IV at 1 bolus Per protocol; to be given as a bolus over 60 me1 minutes Route: IV; Rate: 1 bolus; Site: right antecubital; 21:10 Follow up: Response: No adverse reaction; IV Status: Completed infusion; IV Intake: me1 1000ml 20:13 Drug: predniSONE PO 60 mg PO once Route: PO; me1 21:11 Follow up: Response: No adverse reaction; Marked relief of symptoms me1 20:23 Drug: Albuterol Inhalation 2.5 mg Inhalation once Route: Inhalation; me1 21:11 Follow up: Response: No adverse reaction me1 20:23 Drug: Ipratropium Inhalation Aerosol 0.5 mg Inhalation once Route: Inhalation; me1 21:11 Follow up: Response: No adverse reaction me1 Disposition Summary: 04/21/24 20:07 Discharge Ordered Notes: Location: Home sudha Problem: new sudha Symptoms: have improved sudha Condition: Stable sudha Diagnosis - Allergy to other foods sudha - Allergy, unspecified sudha - Urticaria, unspecified sudha Followup: sudha - With: Private Physician - When: 2 - 3 days - Reason: Recheck today's complaints, Continuance of care, Re-evaluation by your physician Discharge Instructions: - Discharge Summary Sheet sudha - Allergies, Adult sudha - How to Use an Auto-Injector Pen sudha - Food Allergy sudha - Hives sudha - Rash, Adult sudha - Rash, Adult, Qrin-au-Borb sudha - Food Allergy, Fdnp-[id number]-[id number] sudha - Hives, [id number] [facility] Forms: - Medication Reconciliation Form [facility] - Antibiotic Education [facility] - Prescription Opioid Use [facility] - Patient Portal Instructions [facility] - Leadership Thank You Letter [facility] Prescriptions: - EpiPen 0.3 mg/0.3 mL Injection Auto-Injector - administer 0.3 milliliter INTRAMUSCULAR route one time repeat as needed; 2 sudha milliliter; Refills: 0, Product Selection Permitted - Pepcid 40 mg Oral tablet - take 1 tablet ORAL route every 12 hours; 20 tablet; Refills: 0, Product sudha Selection Permitted - Benadryl 25 mg Oral capsule - take 2 capsule ORAL route every 6 hours As needed; 45 tablet; Refills: 0, [facility] Product Selection Permitted - Prednisone 20 mg Oral tablet - take 3 tablets ORAL route once daily for 4 days; 12 tablet; Refills: 0, Product sudha Selection Permitted Signatures: Dispatcher [employer] EDYg Orozco MD MD cha Eddleman, Michelle RN RN me1 ALFONSO BEEBE RN RN dd2 Corrections: (The following items were deleted from the chart) 19:45 19:45 CBC+H.LAB.BRZ ordered. EDMS EDMS 19:45 19:45 COMPREHENSIVE METABOLIC PANEL+C.LAB.BRZ ordered. EDMS EDMS 19:45 19:45 TEST, SERUM+SC.LAB.BRZ ordered. EDMS EDMS
[2024-04-21 20:12] LABS: Absolute Basophils 0.1 K/uL (0-0.5); Absolute Eosinophils 0.2 K/uL (0-0.5); Absolute Lymphocytes (CBC) 3.9 K/uL (0.7-4.9); Absolute Neutrophil 8.8 K/uL (1.8-8.0); Basophils % 0.6 % (0-1.3); Eosinophils % 1.7 % (0-4.4); Hematocrit 40.3 % (36.0-45.0); Hemoglobin 14.1 g/dL (12.0-15.0); Lymphocytes % 27.8 % (15.3-44.8); MCH 29.6 pg (27.0-35.0); MCHC 34.9 g/dL (32.0-36.0); MCV 84.7 fL (80-100); MPV 7.6 fL (7.6-11.3); Monocytes % 6.9 % (3.3-12.3); Nucleated Red Blood Cells % 0.1 % (0-0); Platelets 459 thou/uL (152-406); RBC Red Blood Cell Count 4.75 M/uL (3.86-4.86); Red Cell Distribution Width 13.4 % (12.1-15.2)
[2024-04-21] MEDS ORDERED: ALBUTEROL 2.5 MG/3 ML NEB SOL ONE (20:15)
[2024-04-21] MEDS ORDERED: IPRATROPIUM BROM 0.5MG/2.5ML ONE (20:15)
[2024-04-21 20:36] LABS: Albumin 3.8 g/dL (3.4-5.0); Albumin/Globulin Ratio 0.9 (1.1-1.8); Anion Gap 11.6 mEq/L (5.0-15.0); Bilirubin Total 0.4 mg/dL (0.2-1.0); Globulin 4.2 g/dL (2.3-3.5); Potassium 3.6 mEq/L (3.5-5.1)
[2024-04-21 21:38] VITALS: O2SAT 100
[2024-04-21 21:39] VITALS: BP 119/72; TEMP 98
== END 2024-04-21 21:21 | disposition home or self-care (01) ==
LOC: ER 19:37
DX: L50.9 Urticaria, unspecified (principal); Z91.018 Allergy to other foods
CPT/HCPCS: 36415; 80053; 85025; 96361; 96374; 96375; 99285; J1200; J2919; J7030; J7512; J7613; J7644

== ENCOUNTER 2024-06-04 13:39 | Emergency (ER) | payer SELFPAY ==
[2024-06-04] MEDS ORDERED: KETOROLAC 30 MG/ML INJ ONE (15:08)
--- NOTE | 2024-06-04 16:12 | RAD REPORT ---
Exam:Hand Right 3 View HISTORY: Right hand pain FINDINGS: No fracture or dislocation seen
--- NOTE | 2024-06-04 16:14 | ER ---
Nurse's Notes [facility] Name: Cristopher Deleon Age: 28 yrs Sex: Female : 1995 Arrival Date: 06/04/2024 Time: 13:39 Bed 10 Private MD: Diagnosis: Contusion of right index finger without damage to nail Presentation: 06/04 14:38 Chief complaint: Patient states: opened the aguilar on her car and a tire rolled me1 out, patient tried to catch it and has had pain to right index finger ever since. Worse with movement. Coronavirus screen: Vaccine status: Patient reports being unvaccinated. Ebola Screen: No symptoms or risks identified at this time. Initial Sepsis Screen: Does the patient meet any 2 criteria? No. Patient's initial sepsis screen is negative. Does the patient have a suspected source of infection? No. Patient's initial sepsis screen is negative. Risk Assessment: Do you want to hurt yourself or someone else? Patient reports no desire to harm self or others. Onset of symptoms was June 01, 2024. 14:38 Method Of Arrival: Ambulatory [facility] 14:38 Acuity: OZZIE 4 me1 Triage Assessment: 14:40 General: Appears in no apparent distress. well groomed, well developed, well nourished, me1 Behavior is calm, cooperative, appropriate for age. Pain: Complains of pain in dorsal aspect of middle phalanx of right index finger and dorsal aspect of proximal phalanx of right index finger Pain does not radiate. Pain currently is 6 out of 10 on a pain scale. EENT: No signs and/or symptoms were reported regarding the EENT system. Neuro: Level of Consciousness is awake, alert, obeys commands, Oriented to person, place, time, situation, Appropriate for age. Cardiovascular: Patient's skin is warm and dry. Respiratory: Airway is patent Respiratory effort is even, unlabored, Respiratory pattern is regular, symmetrical. Derm: Skin is intact, is healthy with good turgor, Skin is pink, warm \T\ dry. Musculoskeletal: Reports pain in dorsal aspect of middle phalanx of right index finger and dorsal aspect of proximal phalanx of right index finger. 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 - Infectious Disease History:: Denies. - Social history:: Smoking status: Patient denies any tobacco usage or history of. Screenin:22 [facility] ED Fall Risk Assessment (Adult) History of falling in the last 3 months, jb4 including since admission No falls in past 3 months (0 pts) Confusion or Disorientation No (0 pts) Intoxicated or Sedated No (0 pts) Impaired Gait No (0 pts) Mobility Assist Device Used No (0 pt) Altered Elimination No (0 pt) Score/Fall Risk Level 0 - 2 = Low Risk Oriented to surroundings, Maintained a safe environment. Abuse screen: Denies threats or abuse. Nutritional screening: No deficits noted. Tuberculosis screening: No symptoms or risk factors identified. Assessment: 15:03 General: Appears in no apparent distress. comfortable, Behavior is calm, cooperative, jb4 appropriate for age. Pain: Complains of pain in dorsal aspect of distal phalanx of right index finger, dorsal aspect of middle phalanx of right index finger and dorsal aspect of proximal phalanx of right index finger Pain does not radiate. Pain currently is 6 out of 10 on a pain scale. Neuro: Level of Consciousness is awake, alert, obeys commands, Oriented to person, place, time, situation. Cardiovascular: Patient's skin is warm and dry. Respiratory: Airway is patent Respiratory effort is even, unlabored, Respiratory pattern is regular, symmetrical. Derm: Skin is intact, Skin is pink, warm \T\ dry. Musculoskeletal: Circulation, motion, and sensation intact. Range of motion: limited in MCP of right index finger. 16:11 Reassessment: Patient appears in no apparent distress at this time. Patient and/or jb4 family updated on plan of care and expected duration. Pain level reassessed. Patient is alert, oriented x 3, equal unlabored respirations, skin warm/dry/pink. Patient states feeling better. Vital Signs: 14:38 BP 129 / 61; Pulse 69; Resp 16; Temp 98.4; Pulse Ox 100% ; Weight 104.33 kg; Height 5 me1 ft. 8 in. ; Pain 6/10; 14:38 Body Mass Index 34.97 (104.33 kg, 172.72 cm) me1 14:38 Pain Scale: Adult me1 ED Course: 13:44 Patient arrived in ED. ra3 13:44 Shannan Redmond FNP-C is [facility]. kb 13:44 Ean Fong MD is Attending Physician. kb 14:39 Triage completed. me1 14:40 Arm band placed on Patient placed in waiting room. me1 15:05 Patient has correct armband on for positive identification. Bed in low position. Call jb4 light in reach. Side rails up X 1. Provided Education on: plan of care. 16:00 Hand Right 3 View XRAY In Process Unspecified. EDMS 16:24 No provider procedures requiring assistance completed. Patient did not have IV access jb4 during this emergency room visit. Administered Medications: 15:21 Drug: Ketorolac IM 30 mg IM once Route: IM; Site: right deltoid; jb4 16:00 Follow up: Response: No adverse reaction; Marked relief of symptoms jb4 Medication: 16:22 VIS not applicable for this client. jb4 Outcome: 16:13 Discharge ordered by MD. kb 16:24 Discharged to home ambulatory, jb4 16:24 Condition: stable 16:24 Discharge instructions given to patient, Instructed on discharge instructions, follow up and referral plans. no drinking with medication, medication usage, Demonstrated understanding of instructions, follow-up care, 16:24 Patient left the ED. jb4 Signatures: Dispatcher [employer] EDNY Shannan Redmond FNP-C FNP-Alexis Temple RN RN jb4 Zeenat Barker RN RN oh1 Kristel De Paz ra3
--- NOTE | 2024-06-04 16:14 | EDPHYS ---
Physician Documentation [facility] Name: Cristopher Deleon Age: 28 yrs Sex: Female : 1995 Arrival Date: 06/04/2024 Time: 13:39 Bed 10 Private MD: ED Physician Ean Fong HPI: 06/04 16:08 This 28 yrs old Female presents to ER via Ambulatory with complaints of Right IF injury.kb 16:08 Pt is a 28 year old female who presents for pain to right index finger. States she kb tried to catch a tire that rolled out of her car 4 days ago and injured her finger at that time. States pain has been progressively getting worse. . [employer]: 14:40 LMP N/A - control method, Not me1 Historical: - Allergies: 14:40 Codeine; me1 14:40 Sulfa; me1 14:40 talc; me1 - PMHx: 14:40 Anxiety; me1 - PSHx: 14:40 None; me1 - Immunization history:: Adult Immunizations up to date. - Infectious Disease History:: Denies. - Social history:: Smoking status: Patient denies any tobacco usage or history of. ROS: 16:09 Constitutional: As per HPI kb Exam: 16:09 Constitutional: This is a well developed, well nourished patient who is awake, alert, kb and in no acute distress. Head/Face: Normocephalic, atraumatic. ENT: Moist Mucous membranes Cardiovascular: Regular rate Respiratory: Respirations even and unlabored. No increased work of breathing. Talking in full sentences Skin: Warm, dry with normal turgor. Normal color. Neuro: Awake and alert, GCS 15, oriented to person, place, time, and situation. 16:09 Musculoskeletal/extremity: Extremities: grossly normal except: noted in the Right index finger: decreased ROM, ecchymosis, pain, tenderness, ROM: limited active range of motion due to pain, Circulation is intact in all extremities. Sensation intact. Vital Signs: 14:38 BP 129 / 61; Pulse 69; Resp 16; Temp 98.4; Pulse Ox 100% ; Weight 104.33 kg; Height 5 me1 ft. 8 in. ; Pain 6/10; 14:38 Body Mass Index 34.97 (104.33 kg, 172.72 cm) me1 14:38 Pain Scale: Adult me1 MDM: 13:44 Medical Screening Exam initiated kb 16:09 Differential diagnosis: fracture, contusion, strain. Data reviewed: vital signs. Data kb reviewed: nurses notes. 16:10 Independent interpretation of the following test(s) in the Emergency Department X-Ray: kb My interpretation is no fracture. 16:13 Counseling: I had a detailed discussion with the patient and/or guardian regarding the kb historical points, exam findings, and any diagnostic results supporting the discharge/admit diagnosis, radiology results, the need for outpatient follow up, a family practitioner, to return to the emergency department if symptoms worsen or persist or if there are any questions or concerns that arise at home. 06/04 14:34 Order name: Hand Right 3 View XRAY; Complete Time: 16:13 kb Administered Medications: 15:21 Drug: Ketorolac IM 30 mg IM once Route: IM; Site: right deltoid; jb4 16:00 Follow up: Response: No adverse reaction; Marked relief of symptoms jb4 Disposition Summary: 06/04/24 16:13 Discharge Ordered Notes: Location: Home kb Condition: Stable kb Diagnosis - Contusion of right index finger without damage to nail kb Followup: kb - With: Emergency Department - When: As needed - Reason: Worsening of condition Followup: kb - With: Private Physician - When: 2 - 3 days - Reason: Recheck today's complaints, Continuance of care, Re-evaluation by your physician Discharge Instructions: - Discharge Summary Sheet kb - Contusion, [id number] kb - Finger Sprain, Adult, [id number] kb Forms: - Medication Reconciliation Form kb - Antibiotic Education kb - Prescription Opioid Use kb - Patient Portal Instructions kb - Leadership Thank You Letter kb Prescriptions: - Diclofenac Sodium 75 mg Oral tablet, delayed release (enteric coated) - take 1 tablet ORAL route 2 times per day As needed; 30 tablet; Refills: 0, kb Product Selection Permitted Signatures: Dispatcher [employer] Shannan Benitez, LOVELY-C LOVELY-Alexis Temple, RN RN jb4 Zeenat Barker RN RN me1
[2024-06-04 16:29] VITALS: BP 129/61; TEMP 98.4; O2SAT 100
== END 2024-06-04 16:24 | disposition home or self-care (01) ==
LOC: ER 13:39
DX: S60.021A Contusion of right index finger without damage to nail, initial encounter (principal)
CPT/HCPCS: 96372; 99284